=== PATIENT | male | born 1970 | race Caucasian/White ===

== ENCOUNTER 2022-08-04 19:11 | Emergency (ER) | payer SELFPAY ==
[2022-08-04] VITALS (9 sets, daily range): BP systolic 134–160; BP diastolic 58–98; PULSE 60–63; RESP 16–23; TEMP 36.8; O2SAT 93–100; BMI 46.2
--- NOTE | 2022-08-04 19:26 | XRR_ITS ---
PROCEDURE INFORMATION: Exam: XR Chest Exam date and time: 08/04/2022 7:29 PM Age: 51 years old Clinical indication: Chest wall pain; Additional info: Cp TECHNIQUE: Imaging protocol: Radiologic exam of the chest. Views: 1 view. COMPARISON: No relevant prior studies available. FINDINGS: Lungs: Unremarkable. No consolidation. Pleural spaces: Unremarkable. No pleural effusion. No pneumothorax. Heart/Mediastinum: Cardiomegaly. Bones/joints: Unremarkable. XR/XR chest 1V portable [id number] IMPRESSION: Cardiomegaly, negative for infiltrate
--- NOTE | 2022-08-04 19:27 | ECG_ITS ---
[facility] Test Date: 2022-08-04 Pat Name: Lorne Doty Department: Room: Gender: Male Director Of Strategic Initiatives: : 1970 Requested By: Abdiel Johnson Order Number: [id number] Bright MD: Ann-Marie Arroyo M.D. Measurements Intervals [place] Rate: 59 P: 48 MA: 163 QRS: -8 QRSD: 100 T: 70 QT: 452 QTc: 448 Interpretive Statements SINUS BRADYCARDIA POSSIBLE RIGHT VENTRICULAR CONDUCTION DELAY [RSR (QR) IN V1/V2] No previous ECG available for comparison Electronically Signed On 08-05-2022 11:07:10 CDT by Ann-Marie Arroyo M.D. [email or web address] regional medical centerMippineast ohio regional [email or web address]/store/OM/[id number]
--- NOTE | 2022-08-04 19:36 | ED_ITS ---
HPI - Chest Pain General: Chief Complaint: Chest Pain Stated Complaint: Chest pain post surgery Time Seen by Provider: 08/04/22 19:25 Source: patient Mode of arrival: ambulatory Limitations: no limitations History of Present Illness: 51-year-old male who states that he had a cardiac ablation in [place] 2 days ago he states that since then he has been having this sharp pain in his left chest. He rode a bus down here to see his family states pain has been constant denies any shortness of breath denies any fever he denies any worsening improving factors. He is a smoker. Associated symptoms: Deny abdominal pain, dyspnea, fever(s), nausea or vomiting Review of Systems Const: Denies: fever(s), chills, body aches or change in appetite Eyes: Denies: blurry vision or eye discomfort ENMT: Denies: throat pain or dental pain Card: Reports: chest pain Resp: Denies: dyspnea GI: Denies: abdominal pain, nausea, vomiting or diarrhea : Denies: dysuria Musc: Denies: neck pain or back pain Skin/Breast: Denies: rash Neuro: Denies: headache(s) Psych: Denies: depression Damon/Lymph: Denies: easy bruising All/Imm: Denies: urticaria PFSH ED PFSH: Surgical History (Updated 08/04/22 @ 19:37 by Abdiel Johnson MD) H/O cardiac radiofrequency ablation Social History (Updated 08/04/22 @ 19:37 by Abdiel Johnson MD) Smoking and tobacco status: current every day smoker Physical Exam Const: COMMON NORMALS: no acute distress, patient oriented x3 and healthy sonali earing HENMT: COMMON NORMALS: normocephalic and atraumatic HEAD & SCALP: normocephalic and atraumatic Eye: COMMON NORMALS: Equal, round and reactive pupils present and EOMs intact bilaterally PUPIL: Yes Equal, round and reactive pupils present Neck/C-Spine: COMMON NORMALS: full ROM and supple Chest: COMMONS NORMALS: normal inspection of the chest and normal palpation of entire chest wall Resp: COMMON NORMALS: normal respiratory effort, No retractions, No use of accessory muscles and clear to auscultation bilaterally AUSCULTATION: clear to auscultation bilaterally Cardio: COMMON NORMALS: regular rate, regular rhythm and No murmurs present (Cardio) RATE: regular rate RHYTHM: regular rhythm GI: COMMON NORMALS: Normal to inspection, nondistended, normoactive bowel sounds present, Soft to palpation, non-tender and no masses PALPATION: Yes Soft to palpation Extremity: COMMON NORMALS: normal to inspection and full ROM Neuro: COMMON NORMALS: patient oriented x3, moves all extremities and no focal motor deficits Psych: COMMON NORMALS: mental status grossly normal, Normal thought process present and cooperative THOUGHT PROCESS: Normal thought process present Skin: COMMON NORMALS: no rashes or lesions noted and no wounds GENERAL SKIN EXAM: no rashes or lesions noted Course Vital Signs: Vital signs: Vital Signs Temperature 98.2 F 08/04/22 19:15 Pulse Rate 60 08/04/22 23:50 Respiratory Rate 17 08/04/22 23:50 Blood Pressure 153/58 08/04/22 23:50 Pulse Oximetry 96 08/04/22 23:50 Oxygen Delivery Me thod 08/04/22 23:50 MDM - Chest Pain Medical Decision Making Patient presents here with chest pain atypical in nature his EKG troponins here are normal patient had left his meds in [place] we will refill his amiodarone Eliquis and Cardizem he is to follow-up and return if worsening he understands agrees plan. Lab Data : 08/04/22 20:09 08/04/22 20:09 Radiology Impressions Chest X-Ray 08/04/22 19:26 IMPRESSION: Cardiomegaly, negative for infiltrate Chest CTA 08/04/22 21:49 IMPRESSION: 1. Negative for pulmonary embolus or airspace infiltrate. 2. Cardiomegaly. Laboratory Results WBC 12.2 10^3/uL (4.0-10.0) H 08/04/22 20:09 RBC 3.76 10^6/uL (4.1-5.3) L 08/04/22 20:09 Hgb 12.3 g/dL (11.7-16.6) 08/04/22 20:09 Hct 38.6 % (42.0-52.0) L 08/04/22 20:09 MCV 102.7 fl (80-94) H 08/04/22 20:09 MCH 32.7 pg (28.0-34.0) 08/04/22 20:09 MCHC 31.9 g/dL (30.0-36.0) 08/04/22 20:09 RDW 13.2 % (12.1-15.1) 08/04/22 20:09 Plt Count 280 10^3/cmm (130-400) 08/04/22 20:09 MPV 8.5 fL (7.4-10.4) 08/04/22 20:09 Neut % (Auto) 68.6 % 08/04/22 20:09 Lymph % (Auto) 21.7 % 08/04/22 20:09 Carter % (Auto) 7.1 % 08/04/22 20:09 Eos % (Auto) 0.9 % 08/04/22 20:09 Baso % (Auto) 0.3 % 08/04/22 20:09 Neut # (Auto) 8.37 10^3/uL (1.8-7.7) H 08/04/22 20:09 Lymph # (Auto) 2.6 10^3/uL (0.8-4.8) 08/04/22 20:09 Carter # (Auto) 0.9 10^3/uL (0.2-0.9) 08/04/22 20:09 Eos # (Auto) 0.1 10^3/uL (0.0-0.8) 08/04/22 20:09 Baso # (Auto) 0.0 10^3/uL (0.0-0.1) 08/04/22 20:09 Nucleated RBC % (auto) 0 % 08/04/22 20:09 Nucleated RBCs # 0.0 /100WBC 08/04/22 20:09 PT 13.40 SECONDS (12.1-14.9) 08/04/22 20:09 INR 0.99 (0.8-1.2) 08/04/22 20:09 D-Dimer 1.06 ug/mIFEU (0-0.59) H 08/04/22 20:09 Sodium 137 mmol/L (136-145) 08/04/22 20:09 Potassium 3.8 mmol/L (3.5-5.1) 08/04/22 20:09 Chloride 102 mmol/L (98-107) 08/04/22 20:09 Carbon Dioxide 24 mmol/L (22-29) 08/04/22 20:09 Anion Gap 14.8 (5-19) 08/04/22 20:09 BUN 9 mg/dL (6-20) 08/04/22 20:09 Creatinine 0.9 mg/dL (0.7-1.2) 08/04/22 20:09 GFR Calculation 89.0 mL/min (90-130) L 08/04/22 20:09 Glucose 107 mg/dL (65-115) 08/04/22 20:09 Calculated Osmolality 283 mOsm/kg (285-295) L 08/04/22 20:09 Calcium 8.6 mg/dL (8.5-10.5) 08/04/22 20:09 Total Bilirubin 0.2 mg/dL (0.15-1.2) 08/04/22 20:09 AST 16 U/L (0-40) 08/04/22 20:09 ALT 22 U/L (0-41) 08/04/22 20:09 Alkaline Phosphatase 87 U/L (40-130) 08/04/22 20:09 Troponin T Baseline 37 ng/L (0-15) H 08/04/22 20:09 Troponin T 120 Minute 36.43 ng/L (0-15) H 08/04/22 22:40 Delta Troponin T -0.57 ABS# (0-10) L 08/04/22 22:40 Total Protein 6.9 g/dL (6.6-8.7) 08/04/22 20:09 Albumin 3.5 g/dL (3.5-5.2) 08/04/22 20:09 Globulin 3.4 g/dL (1.3-4.6) 08/04/22 20:09 EKG Data EKG 1: I personally reviewed and interpreted this EKG as follows: EKG interpretation date: 08/04/22 EKG interpretation time: 19:27 Interpretation: sinus gavin hr [address] or t wave abnormalities qrs 100 [id number] EKG 2: I personally reviewed and interpreted this EKG as follows: EKG interpretation date: 08/04/22 EKG interpretation time: 21:26 Interpretation: sinus gavin hr [address] or t wave abnormalities qrs 95 qtc 434 Discharge Plan Discharge Patient Disposition: Home Clinical Impression: Chest pain Prescriptions: New amiodarone 200 mg tablet 200 mg PO BID Qty: 60 0RF Eliquis 5 mg tablet 5 mg PO BID Qty: 60 0RF Cardizem CD 120 mg capsule,extended release 24hr 120 mg PO DAILY Qty: 30 0RF Discharge Orders: Discharge ED (Routine); Ordered 08/04/22 Ordered By: Abdiel Johnson Discharge Diet: Advance as tolerated Discharge Activity: Resume usual activity Patient Instructions: Chest Pain (ED) Coding Level of Care Code ED Postage Machine Operator for Rigo Fwgabrielle Exam Comprehensive
[2022-08-04] MEDS: HYDROmorphone 1 mg/mL INJ 1 mL 0.5 MG IVP (19:59)
[2022-08-04] MEDS: ondansetron 2 mg/ML SDV 2 mL 4 MG IVP (19:59)
[2022-08-04 20:33] LABS: Basophils % 0.3 %; Eosinophils # 0.1 10^3/uL (0.0-0.8); Eosinophils % 0.9 %; Hematocrit 38.6 % (42.0-52.0); Hemoglobin 12.3 g/dL (11.7-16.6); Lymphocytes # 2.6 10^3/uL (0.8-4.8); Lymphocytes % 21.7 %; Mean Corpuscular HGB Conc 31.9 g/dL (30.0-36.0); Mean Corpuscular Hemoglobin 32.7 pg (28.0-34.0); Mean Corpuscular Volume 102.7 fl (80-94); Mean Platelet Volume 8.5 fL (7.4-10.4); Monocytes # 0.9 10^3/uL (0.2-0.9); Monocytes % 7.1 %; Neutrophils # 8.37 10^3/uL (1.8-7.7); Neutrophils % 68.6 %; Nucleated Red Blood Cells % 0 %; Platelet Count 280 10^3/cmm (130-400); Red Blood Count 3.76 10^6/uL (4.1-5.3); Red Cell Distribution Width 13.2 % (12.1-15.1); White Blood Count 12.2 10^3/uL (4.0-10.0)
[2022-08-04 20:54] LABS: Troponin(5th) Baseline 37 ng/L (0-15)
[2022-08-04 20:55] LABS: Alanine Aminotransferase 22 U/L (0-41); Albumin Level 3.5 g/dL (3.5-5.2); Alkaline Phosphatase 87 U/L (40-130); Anion Gap 14.8 (5-19); Aspartate Amino Transferase 16 U/L (0-40); Blood Urea Nitrogen 9 mg/dL (6-20); Calcium 8.6 mg/dL (8.5-10.5); Carbon Dioxide 24 mmol/L (22-29); Chloride 102 mmol/L (98-107); Globulin 3.4 g/dL (1.3-4.6); Glucose 107 mg/dL (65-115); Osmolality Calculated 283 mOsm/kg (285-295); Potassium 3.8 mmol/L (3.5-5.1); Sodium 137 mmol/L (136-145); Total Bilirubin 0.2 mg/dL (0.15-1.2); Total Protein 6.9 g/dL (6.6-8.7)
[2022-08-04 21:02] LABS: INR 0.99 (0.8-1.2)
[2022-08-04 21:04] LABS: D Dimer 1.06 ug/mIFEU (0-0.59)
--- NOTE | 2022-08-04 21:26 | ECG_ITS ---
[facility] Test Date: 2022-08-04 Pat Name: Lorne Doty Department: Room: Gender: Male Communications Analyst: : 1970 Requested By: Abdiel Johnson Order Number: [id number] Bright MD: Ann-Marie Arroyo M.D. Measurements Intervals [place] Rate: 59 P: 46 [place]: 174 QRS: 1 QRSD: 95 T: 70 QT: 435 QTc: 432 Interpretive Statements SINUS BRADYCARDIA WITH SINUS ARRHYTHMIA INCOMPLETE RIGHT BUNDLE BRANCH BLOCK [90+ ms QRS DURATION, TERMINAL R IN V1/V2, 40+ ms S IN I/aVL/V4/V5/V6] Compared to ECG 08/04/2022 19:27:10 Incomplete right bundle-branch block now present Electronically Signed On 08-05-2022 11:13:23 CDT by Ann-Marie Arroyo M.D. [id number]
[2022-08-04 21:47] LABS: Slide Review Slide Review Perform
--- NOTE | 2022-08-04 21:49 | CTR_ITS ---
PROCEDURE INFORMATION: Exam: CTA Chest With Contrast Exam date and time: 08/04/2022 10:18 PM Age: 51 years old Clinical indication: Pain and abnormal findings; Abnormal diagnostic tests; Elevated d-dimer; Shortness of breath; Chest pressure; Prior surgery; Surgery date: Post-operative (0-2 days); Surgery type: Cardiac radiofrequency ablation. Patient HX: Patient had cardiac ablation two days ago. C/O left chest discomfort with SOB and elevated d dimer. TECHNIQUE: Imaging protocol: Computed tomographic angiography of the chest with contrast. 3D rendering (Not supervised by radiologist): MIP and/or 3D reconstructed images were created by the technologist. Radiation optimization: All CT scans at this facility use at least one of these dose optimization techniques: automated exposure control; mA and/or kV adjustment per patient size (includes targeted exams where dose is matched to clinical indication); or iterative reconstruction. Contrast material: OMNI 350; Contrast volume: 90 ml; Contrast route: INTRAVENOUS (IV); COMPARISON: CR (CHEST, ) 08/04/2022 7:29 PM RADIATION DOSE METRICS: Total DLP (mGy-cm): 614.05 FINDINGS: Pulmonary arteries: Normal. No pulmonary emboli. Aorta: Unremarkable. No aortic aneurysm. No aortic dissection. Lungs: Unremarkable. No consolidation. No masses. Pleural spaces: Unremarkable. No pneumothorax. No pleural effusion. Heart: Cardiomegaly. Negative for coronary artery atherosclerotic calcifications. Lymph nodes: Unremarkable. No enlarged lymph nodes. Bones/joints: Unremarkable. No acute fracture. Soft tissues: Unremarkable. CT/CT angio chest PE protcl [id number] IMPRESSION: 1. Negative for pulmonary embolus or airspace infiltrate. 2. Cardiomegaly.
[2022-08-04] MEDS: HYDROmorphone 1 mg/mL INJ 1 mL IVP (22:39)
[2022-08-04] MEDS: iohexol 350 mg/mL 100 mL Btl IV (22:46)
[2022-08-04 23:07] LABS: Troponin 5 2HR 36.43 ng/L (0-15)
[2022-08-04 23:16] LABS: Troponin 5 2HR Delta -0.57 ABS# (0-10)
== END 2022-08-04 23:55 | disposition home or self-care (01) ==
PROVIDERS: Emergency Provider Emergency Medicine
DX: R07.9 Chest pain, unspecified (principal); Z79.01 Long term (current) use of anticoagulants; F17.210 Nicotine dependence, cigarettes, uncomplicated
CPT/HCPCS: 36415; 71045; 71275; 80053; 84484; 85025; 85378; 85610; 93005; 96374; 96375; 96376; 99285; J1170; J2405; Q9967

== ENCOUNTER 2022-08-05 12:53 | Emergency (ER) | payer MEDICARE, SELFPAY ==
[2022-08-05 12:56] VITALS: BP 155/90; PULSE 60; RESP 22; TEMP 36.9; O2SAT 97; BMI 53.1
--- NOTE | 2022-08-05 13:08 | ECG_ITS ---
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 Measurements Intervals [place] Rate: 57 P: 96 [place]: 159 QRS: -11 QRSD: 98 T: 78 QT: 435 QTc: 424 Interpretive Statements SINUS BRADYCARDIA WITH SINUS ARRHYTHMIA Compared to ECG 08/04/2022 21:26:11 Incomplete right bundle-branch block no longer present Electronically Signed On 08-05-2022 18:12:18 CDT by Shahbaz Mcfarland M.D. [id number]
--- NOTE | 2022-08-05 13:15 | ED_ITS ---
Documented by User: Luis E Gunn DO 08/05/22 18:04 HPI - Chest Pain General: Chief Complaint: Chest Pain Stated Complaint: Chess pains Time Seen by Provider: 08/05/22 13:01 Source: patient Mode of arrival: ambulatory History of Present Illness: 51-year-old male reregistered in the emergency room. He was here last night for serial enzymes which were negative. He reregistered to be seen stating a chest discomfort when talking to him he is confused about his medications he wants to be admitted to the hospital. He is took a bus [place] his brother supposed to come and get him but evidently does not want to there at odds with each other. He is complaining of the same chest discomfort he had last night he has not done anything exertional. No radiation to the neck arms or back. Patient is morbidly obese is not associating with any type of shortness of breath or diaphoresis. Patient previously had a radiofrequency ablation but no known coronary artery disease MD complaint: chest pain Onset (ago): hour(s) Prior episodes: Yes Onset: during rest Pain location: substernal Pain radiation: none Severity: moderate Quality: aching and heaviness Relieving factors: nothing Exacerbating factors: nothing Associated symptoms: Deny abdominal pain, diaphoresis, dyspnea, fever(s), leg edema, nausea, palpitations, sense of impending doom, syncope or vomiting Treatment prior to arrival: none Review of Systems Const: Denies: fever(s), chills, fatigue, malaise or diaphoresis ENMT: Denies: throat pain, ear or mastoid pain, nasal discharge or nasal congestion Card: Reports: chest pain; Denies: palpitations, irregular heart rhythm, edema or syncope Resp: Denies: dyspnea GI: Denies: abdominal pain, nausea or vomiting : Denies: flank pain, difficulty urinating, dysuria, urinary frequency or urinary urgency Skin/Breast: Denies: rash or pruritus PFSH ED PFSH: Medical History (Updated 08/05/22 @ 21:02 by Abdiel Johnson MD) Morbid obesity Surgical History H/O cardiac radiofrequency ablation Social History (Reviewed 08/05/22 @ 17:09 by KATELYN Liz Smoking and tobacco status: current every day smoker Physical Exam Const: COMMON NORMALS: no acute distress GENERAL APPEARANCE: cooperative and comfortable NUTRITIONAL APPEARANCE: obese morbidly obese ORIENTATION/CONSCIOUSNESS: Yes awake, Yes oriented to person, Yes oriented to place and Yes oriented to time HENMT: COMMON NORMALS: normocephalic and atraumatic HEAD & SCALP: normocephalic and atraumatic Resp: COMMON NORMALS: normal respiratory effort, No retractions, No use of accessory muscles and clear to auscultation bilaterally AUSCULTATION: clear to auscultation bilaterally Cardio: COMMON NORMALS: regular rate, regular rhythm and No murmurs present (Cardio) RATE: regular rate RHYTHM: regular rhythm GI: COMMON NORMALS: Soft to palpation and No hepatosplenomegaly present AUSCULTATION: Yes normoactive bowel sounds PALPATION: Yes Soft to palpation, No Tenderness to palpation present (GI), No Guarding due to palpation present (GI) and Yes No hepatosplenomegaly present Extremity: COMMON NORMALS: normal to inspection, capillary refill normal, no clubbing, cyanosis or edema, no calf tenderness and no pedal edema Neuro: SENSORIUM/ORIENTATION: Yes oriented to person, Yes oriented to place and Yes oriented to time Skin: COMMON NORMALS: no rashes or lesions noted GENERAL SKIN EXAM: no rashes or lesions noted Course Vital Signs: Vital signs: Vital Signs Temperature 98.1 F 08/05/22 22:51 Pulse Rate 61 08/05/22 22:51 Respiratory Rate 24 H 08/05/22 22:51 Blood Pressure 157/92 08/05/22 22:51 Pulse Oximetry 98 08/05/22 22:51 Oxygen Delivery Me thod 08/05/22 12:56 MDM - Chest Pain Medical Decision Making After initial troponin and EKG patient now is stating he is suicidal and conversation with him he admits he is does not want to have to deal with his medications and does not have anywhere to go. We have made arrangements for go to a homeless nursing home he does not want to go there and wants to be admitted to psychiatry for his suicidal ideation. Discussed with Dr. Bose he will see the patient in the department and evaluate. Awaiting Dr. Bose consult. Care signed out to Dr. Johnson at change of shift. See final notes for diagnosis and disposition. Medical Records I reviewed the patient's medical records. Lab Data I reviewed the patient's lab results. Laboratory Results Troponin T Gen 5 ng/L 45 ng/L (0-15) H 08/05/22 13:33 Troponin T 120 Minute 43.31 ng/L (0-15) H 08/05/22 15:37 Delta Troponin T -1.69 ABS# (0-10) L 08/05/22 15:37 Discharge Plan Discharge Patient Disposition: Home Clinical Impression: Chest pain Condition: Stable Prescriptions: No Action amiodarone 200 mg tablet 200 mg PO BID Qty: 60 0RF Eliquis 5 mg tablet 5 mg PO BID Qty: 60 0RF diltiazem HCl [Cardizem CD] 120 mg capsule,extended release 24hr 120 mg PO DAILY Qty: 30 0RF Lasix 40 mg Tablet 40 mg PO DAILY isosorbide mononitrate 30 mg Tablet Extended Release 24 Hr 30 mg PO DAILY tramadol 50 mg Tablet 50 mg PO Q8H PRN (Reason: Pain) venlafaxine 150 mg Tablet Extended Release 24 Hr 150 mg PO DAILY Discharge Orders: Discharge ED (Routine); Ordered 08/05/22 Ordered By: Abdiel Johnson Discharge Diet: Advance as tolerated Discharge Activity: Resume usual activity Patient Instructions: Chest Pain (ED) Coding Level of Care Code ED Window Unit Air Conditioning Mechanic for Chg Fwd Exam Detailed Documented by User: Abdiel Johnson MD 08/05/22 22:56 HPI - Chest Pain General: Chief Complaint: Chest Pain Stated Complaint: Chess pains Time Seen by Provider: 08/05/22 13:01 [facility] ED PFSH: Medical History (Updated 08/05/22 @ 21:02 by Abdiel Johnson MD) Morbid obesity Surgical History H/O cardiac radiofrequency ablation Social History Smoking and tobacco status: current every day smoker Course Vital Signs: Vital signs: Vital Signs Temperature 98.1 F 08/05/22 22:51 Pulse Rate 61 08/05/22 22:51 Respiratory Rate 24 H 08/05/22 22:51 Blood Pressure 157/92 08/05/22 22:51 Pulse Oximetry 98 08/05/22 22:51 Oxygen Delivery Me thod 08/05/22 12:56 MDM - Chest Pain Medical Decision Making After initial troponin and EKG patient now is stating he is suicidal and conversation with him he admits he is does not want to have to deal with his medications and does not have anywhere to go. We have made arrangements for go to a homeless nursing home he does not want to go there and wants to be admitted to psychiatry for his suicidal ideation. Discussed with Dr. Bose he will see the patient in the department and evaluate. Awaiting Dr. Bose consult. Care signed out to Dr. Johnson at change of shift. See final notes for diagnosis and disposition. Patient was seen here by Dr. Bose he is medically cleared does not require psych admission will discharge at this time. Lab Data Laboratory Results Troponin T Gen 5 ng/L 45 ng/L (0-15) H 08/05/22 13:33 Troponin T 120 Minute 43.31 ng/L (0-15) H 08/05/22 15:37 Delta Troponin T -1.69 ABS# (0-10) L 08/05/22 15:37 Discharge Plan Discharge Patient Disposition: Home Clinical Impression: Chest pain Condition: Stable Prescriptions: No Action amiodarone 200 mg tablet 200 mg PO BID Qty: 60 0RF Eliquis 5 mg tablet 5 mg PO BID Qty: 60 0RF diltiazem HCl [Cardizem CD] 120 mg capsule,extended release 24hr 120 mg PO DAILY Qty: 30 0RF Lasix 40 mg Tablet 40 mg PO DAILY isosorbide mononitrate 30 mg Tablet Extended Release 24 Hr 30 mg PO DAILY tramadol 50 mg Tablet 50 mg PO Q8H PRN (Reason: Pain) venlafaxine 150 mg Tablet Extended Release 24 Hr 150 mg PO DAILY Discharge Orders: Discharge ED (Routine); Ordered 08/05/22 Ordered By: Abdiel Johnson Discharge Diet: Advance as tolerated Discharge Activity: Resume usual activity Patient Instructions: Chest Pain (ED) Coding Level of Care Code ED Window Unit Air Conditioning Mechanic for Chg Fwd Exam Detailed
[2022-08-05 14:11] LABS: Troponin T (5th) Once 45 ng/L (0-15)
--- NOTE | 2022-08-05 14:53 | ECG_ITS ---
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 Measurements Intervals [place] Rate: 53 P: 41 [place]: 176 QRS: -1 QRSD: 99 T: 73 QT: 450 QTc: 425 Interpretive Statements SINUS BRADYCARDIA WITH SINUS ARRHYTHMIA Compared to ECG 08/05/2022 13:08:36 No significant changes Electronically Signed On 08-05-2022 18:18:08 CDT by Shahbaz Mcfarland M.D. [email or web address] hospital [email or web address] [email or web address]/[id number]
--- NOTE | 2022-08-05 15:42 | PC.NURSE ---
PT REPORTS THAT HE HAS HAD AND STILL HAS SI. INFORMED DR. DUKES HE VERBALIZED UNDERSTANDING. NOFURTHER ORDERS.
[2022-08-05 16:27] LABS: Troponin 5 2HR 43.31 ng/L (0-15)
[2022-08-05 16:34] LABS: Troponin 5 2HR Delta -1.69 ABS# (0-10)
--- NOTE | 2022-08-05 17:16 | PC.NURSE ---
pt asleep in bed, laying on right side. respirations appear even and unlabored.
--- NOTE | 2022-08-05 18:01 | PC.NURSE ---
pt sitting at end of bed watching TV. Pt requesting pudding, a coke, and a surgical mask. items provided for pt. pt currently calm and cooperative.
--- NOTE | 2022-08-05 18:59 | PC.NURSE ---
report given to MARITA Carmichael
[2022-08-05] MEDS: LORazepam 2 mg Tablet PO (22:41)
[2022-08-05 22:51] VITALS: BP 157/92; PULSE 61; RESP 24; TEMP 36.7; O2SAT 98
== END 2022-08-05 22:53 | disposition home or self-care (01) ==
PROVIDERS: Family Medicine; Emergency Provider Emergency Medicine
DX: R07.89 Other chest pain (principal); E66.01 Morbid (severe) obesity due to excess calories; Z68.43 Body mass index [BMI] 50.0-59.9, adult; F17.200 Nicotine dependence, unspecified, uncomplicated; Z59.00 Homelessness unspecified
CPT/HCPCS: 36415; 84484; 93005; 99285

== ENCOUNTER 2022-08-07 11:05 | Emergency (ER) | payer MEDICARE, SELFPAY ==
[2022-08-07 11:30] VITALS: BMI 51.7
[2022-08-07 11:32] VITALS: BP 178/98; PULSE 53; RESP 16; TEMP 36.6; O2SAT 97
--- NOTE | 2022-08-07 11:44 | W.ED.CHESTPA ---
HPI - Chest Pain General: Chief Complaint: Chest Pain Stated Complaint: Chest pain Time Seen by Provider: 08/07/22 11:21 Source: patient Mode of arrival: ambulatory History of Present Illness: 51-year-old male presents emergency room from the waiting room. He has been here for the last several days in the waiting room. He seen several times cardiac enzymes have been negative. Last time he was seen I had initiated his visit and then handed him off to Dr. Johnson at change of shift. Who expressed suicidal ideation the end of his visit psychiatry seen him and evaluated him and felt he was stable for discharge. The day that walked him over to get his medications refilled and he had a near syncopal episode. His main complaint now is pain. He says he has pain in his back and his chest. Short of breath with exertion. This is similar complaint to what he has presented with the last 2 times. Patient is super morbidly obese and complains of shortness of breath with any exertion. MD complaint: chest pain and chest heaviness Timing of current episode: episodic Prior episodes: Yes Onset: during rest and during exertion Pain location: left chest Pain radiation: back Severity: mild Quality: sharp Relieving factors: nothing Exacerbating factors: nothing Associated symptoms: Reports dyspnea; Deny abdominal pain, diaphoresis, fever(s), leg edema, nausea, palpitations, sense of impending doom, syncope or vomiting Treatment prior to arrival: none Review of Systems Const: Denies: fever(s), chills, fatigue, malaise or diaphoresis ENMT: Denies: throat pain, ear or mastoid pain, nasal discharge or nasal congestion Card: Reports: chest pain, edema and swelling of feet/ankles; Denies: palpitations, irregular heart rhythm or syncope Resp: Reports: dyspnea; Denies: productive cough or non-productive cough GI: Denies: abdominal pain, nausea or vomiting : Denies: flank pain, difficulty urinating, dysuria, urinary frequency or urinary urgency Musc: Reports: neck pain and back pain Skin/Breast: Denies: rash or pruritus PFSH ED PFSH: Medical History Morbid obesity Surgical History H/O cardiac radiofrequency ablation Social History Smoking and tobacco status: current every day smoker Physical Exam Const: GENERAL APPEARANCE: cooperative and comfortable ORIENTATION/CONSCIOUSNESS: Yes awake, Yes oriented to person, Yes oriented to place and Yes oriented to time HENMT: COMMON NORMALS: normocephalic, atraumatic and hearing grossly normal bilaterally HEAD & SCALP: normocephalic and atraumatic Resp: COMMON NORMALS: normal respiratory effort, No retractions, No use of accessory muscles and clear to auscultation bilaterally AUSCULTATION: clear to auscultation bilaterally Cardio: COMMON NORMALS: regular rate, regular rhythm and No murmurs present (Cardio) RATE: regular rate RHYTHM: regular rhythm GI: COMMON NORMALS: Soft to palpation and No hepatosplenomegaly present AUSCULTATION: Yes normoactive bowel sounds PALPATION: Yes Soft to palpation, No Tenderness to palpation present (GI), No Guarding due to palpation present (GI) and Yes No hepatosplenomegaly present Extremity: COMMON NORMALS: normal to inspection, capillary refill normal, no clubbing, cyanosis or edema, no calf tenderness and no pedal edema Neuro: SENSORIUM/ORIENTATION: Yes oriented to person, Yes oriented to place and Yes oriented to time Skin: COMMON NORMALS: no rashes or lesions noted GENERAL SKIN EXAM: no rashes or lesions noted Course Vital Signs: Vital signs: Vital Signs Temperature 97.8 F 08/07/22 11:32 Pulse Rate 53 L 08/07/22 11:32 Respiratory Rate 16 08/07/22 11:32 Blood Pressure 178/98 08/07/22 11:32 Pulse Oximetry 97 08/07/22 11:32 Oxygen Delivery Me thod 08/07/22 11:32 MDM - Chest Pain Medical Decision Making Labs continue to remain unremarkable. Reviewed findings with the patient. Went through all of his medications he including the ones he has with him and what he should be taking we did find several he will need prescriptions for. Social service made arrangements for him to go to homeless retirement. Encourage patient take medications as prescribed Medical Records I reviewed the patient's medical records. Lab Data I reviewed the patient's lab results. : 08/07/22 11:51 08/07/22 11:51 Laboratory Results WBC 9.8 10^3/uL (4.0-10.0) 08/07/22 11:51 RBC 3.77 10^6/uL (4.1-5.3) L 08/07/22 11:51 Hgb 12.6 g/dL (11.7-16.6) 08/07/22 11:51 Hct 38.5 % (42.0-52.0) L 08/07/22 11:51 MCV 102.1 fl (80-94) H 08/07/22 11:51 MCH 33.4 pg (28.0-34.0) 08/07/22 11:51 MCHC 32.7 g/dL (30.0-36.0) 08/07/22 11:51 RDW 13.4 % (12.1-15.1) 08/07/22 11:51 Plt Count 261 10^3/cmm (130-400) 08/07/22 11:51 MPV 8.4 fL (7.4-10.4) 08/07/22 11:51 Neut % (Auto) 73.0 % 08/07/22 11:51 Lymph % (Auto) 20.7 % 08/07/22 11:51 [place] % (Auto) 4.9 % 08/07/22 11:51 Eos % (Auto) 0.4 % 08/07/22 11:51 Baso % (Auto) 0.3 % 08/07/22 11:51 Neut # (Auto) 7.17 10^3/uL (1.8-7.7) 08/07/22 11:51 Lymph # (Auto) 2.0 10^3/uL (0.8-4.8) 08/07/22 11:51 [place] # (Auto) 0.5 10^3/uL (0.2-0.9) 08/07/22 11:51 Eos # (Auto) 0.0 10^3/uL (0.0-0.8) 08/07/22 11:51 Baso # (Auto) 0.0 10^3/uL (0.0-0.1) 08/07/22 11:51 Nucleated RBC % (auto) 0 % 08/07/22 11:51 Nucleated RBCs # 0.0 /100WBC 08/07/22 11:51 Sodium 137 mmol/L (136-145) 08/07/22 11:51 Potassium 4.3 mmol/L (3.5-5.1) 08/07/22 11:51 Chloride 103 mmol/L (98-107) 08/07/22 11:51 Carbon Dioxide 23 mmol/L (22-29) 08/07/22 11:51 Anion Gap 15.3 (5-19) 08/07/22 11:51 BUN 10 mg/dL (6-20) 08/07/22 11:51 Creatinine 0.8 mg/dL (0.7-1.2) 08/07/22 11:51 GFR Calculation 101.9 mL/min (90-130) 08/07/22 11:51 Glucose 104 mg/dL (65-115) 08/07/22 11:51 Calculated Osmolality 283 mOsm/kg (285-295) L 08/07/22 11:51 Calcium 8.8 mg/dL (8.5-10.5) 08/07/22 11:51 Troponin T Gen 5 ng/L 48 ng/L (0-15) H 08/07/22 11:51 Discharge Plan Discharge Patient Disposition: Home Clinical Impression: H/O cardiac radiofrequency ablation, Morbid obesity, Atypical chest pain Condition: Stable Prescriptions: New Synthroid 75 mcg tablet 75 mcg PO DAILY Qty: 30 0RF pantoprazole 40 mg tablet,delayed release (DR/EC) 40 mg PO DAILY Qty: 30 0RF clonidine HCl 0.2 mg tablet 0.2 mg PO TID PRN (Reason: hypertensive emergency) Qty: 90 0RF Lipitor 40 mg tablet 40 mg PO DAILY Qty: 30 0RF Effexor XR 150 mg capsule,extended release 24hr 150 mg PO DAILY Qty: 30 0RF isosorbide mononitrate 30 mg tablet extended release 24 hr 30 mg PO DAILY Qty: 30 0RF Discontinued isosorbide mononitrate 30 mg Tablet Extended Release 24 Hr 30 mg PO DAILY venlafaxine 150 mg Tablet Extended Release 24 Hr 150 mg PO DAILY atorvastatin [Lipitor] 40 mg Tablet 40 mg PO DAILY pantoprazole [Protonix] 20 mg Tablet,Delayed Release (Dr/Ec) 20 mg PO DAILY clonidine HCl 0.2 mg Tablet 0.2 mg PO Q8H PRN (Reason: unknown) No Action amiodarone 200 mg tablet 200 mg PO BID Qty: 60 0RF Eliquis 5 mg tablet 5 mg PO BID Qty: 60 0RF diltiazem HCl [Cardizem CD] 120 mg capsule,extended release 24hr 120 mg PO DAILY Qty: 30 0RF furosemide [Lasix] 40 mg Tablet 40 mg PO BID Tylenol 325 mg Tablet 650 mg PO Q4H PRN (Reason: Pain) levothyroxine 75 mcg Tablet 75 mcg PO DAILY ibuprofen 200 mg Tablet 800 mg PO Q6H PRN (Reason: Pain) fluticasone propion-salmeterol 100-50 mcg/dose Blister With Device 1 inh INHALATION BID Ventolin HFA 90 mcg/actuation Hfa Aerosol Inhaler 2 puff INHALATION QID PRN (Reason: Shortness Of Breath) melatonin 3 mg Capsule 6 mg PO BEDTIME PRN (Reason: Sleep) Discharge Orders: Discharge ED (Routine); Ordered 08/07/22 Ordered By: Luis E Gunn Discharge Diet: Usual diet Discharge Activity: Limit activity as instructed Patient Instructions: Opioid Safety, Pain Management Activity Restrictions/Additional Instructions: Avoid exertional activity. Medication list as in the discharge summary here today. You will need to get refills of several of the medication scripts were given for 30 days. Follow-up with your primary care doctor to refill more of your medications for longer term. 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
[2022-08-07 12:06] LABS: Basophils % 0.3 %; Eosinophils % 0.4 %; Hematocrit 38.5 % (42.0-52.0); Hemoglobin 12.6 g/dL (11.7-16.6); Lymphocytes % 20.7 %; Mean Corpuscular HGB Conc 32.7 g/dL (30.0-36.0); Mean Corpuscular Hemoglobin 33.4 pg (28.0-34.0); Mean Corpuscular Volume 102.1 fl (80-94); Mean Platelet Volume 8.4 fL (7.4-10.4); Monocytes # 0.5 10^3/uL (0.2-0.9); Monocytes % 4.9 %; Neutrophils # 7.17 10^3/uL (1.8-7.7); Nucleated Red Blood Cells % 0 %; Platelet Count 261 10^3/cmm (130-400); Red Blood Count 3.77 10^6/uL (4.1-5.3); Red Cell Distribution Width 13.4 % (12.1-15.1); White Blood Count 9.8 10^3/uL (4.0-10.0)
--- NOTE | 2022-08-07 12:16 | PC.PHAR ---
pt brought in his medications in blister packs from the [facility]-notes are made in the pharmacy comments with how many days or tabs the pt had left-pt states he took xanax 1mg tid but there was no med pack with that medication -pt also had a empty pack that had depakote dr 250mg bid said not to put in that medication because he wasnt refilling it-notes are made in the pharmacy comments
[2022-08-07 12:25] LABS: Troponin T (5th) Once 48 ng/L (0-15)
[2022-08-07 12:26] LABS: Anion Gap 15.3 (5-19); Blood Urea Nitrogen 10 mg/dL (6-20); Calcium 8.8 mg/dL (8.5-10.5); Carbon Dioxide 23 mmol/L (22-29); Chloride 103 mmol/L (98-107); Glomerular Filtration Rate 101.9 mL/min (90-130); Glucose 104 mg/dL (65-115); Osmolality Calculated 283 mOsm/kg (285-295); Potassium 4.3 mmol/L (3.5-5.1); Sodium 137 mmol/L (136-145)
--- NOTE | 2022-08-07 12:47 | DCPLANNER ---
display department manager was asked to arrange transportation for patient. display department manager spoke with patient, he stated that he has a bed at [facility], lining caser called and confirmed that patient does have a bed at the senior care. display department manager was told that patient would need to go to the [employer] [facility] station and get a wants and warrants check. display department manager spoke with E[employer] and was approved to arrange transportation for patient. Patient will need to go to the [employer] station for the wants and warrants check, then transported [place] [facility] [place] [facility]. display department manager called [employer], was quoted 11.00 for patients transportation with both stops. display department manager emailed patients information to [place] with transportation information.
--- NOTE | 2022-08-07 14:14 | ECG_ITS ---
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 Measurements Intervals [place] Rate: 55 P: 25 CT: 171 QRS: -2 QRSD: 105 T: 73 QT: 463 QTc: 444 Interpretive Statements SINUS BRADYCARDIA INTERPRETATION BASED ON A DEFAULT AGE OF 40 YEARS Compared to ECG 08/05/2022 14:53:45 Sinus arrhythmia no longer present Electronically Signed On 08-08-2022 0:08:39 CDT by Shahbaz Mcfarland M.D. [email or web address]/store/[id number] f
== END 2022-08-07 12:56 | disposition home or self-care (01) ==
PROVIDERS: Emergency Provider Family Medicine
DX: R07.89 Other chest pain (principal); E66.01 Morbid (severe) obesity due to excess calories; Z68.43 Body mass index [BMI] 50.0-59.9, adult; Z98.890 Other specified postprocedural states; Z79.01 Long term (current) use of anticoagulants; F17.210 Nicotine dependence, cigarettes, uncomplicated
CPT/HCPCS: 36415; 80048; 84484; 85025; 93005; 99284

== ENCOUNTER 2022-08-17 12:57 | Emergency (ER) | payer MEDICARE, SELFPAY ==
[2022-08-17] VITALS (21 sets, daily range): BP systolic 101–164; BP diastolic 42–89; PULSE 51–67; RESP 14–27; TEMP 36.7; O2SAT 91–96; BMI 51.7
--- NOTE | 2022-08-17 13:07 | ECG_ITS ---
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 Measurements Intervals [place] Rate: 65 P: 32 TN: 164 QRS: -27 QRSD: 102 T: 72 QT: 448 QTc: 469 Interpretive Statements SINUS RHYTHM BORDERLINE LEFT AXIS DEVIATION [QRS AXIS < -20] NONSPECIFIC T-WAVE ABNORMALITY Compared to ECG 08/07/2022 11:17:52 T-wave abnormality now present Sinus bradycardia no longer present Electronically Signed On 08-17-2022 17:08:17 CDT by Ann-Marie Arroyo M.D. [email or web address]/[id number] f
--- NOTE | 2022-08-17 13:09 | XRR_ITS ---
PROCEDURE INFORMATION: Exam: XR Chest Exam date and time: 08/17/2022 1:13 PM Age: 51 years old Clinical indication: Pain; Angina pectoris; Additional info: Chest pain TECHNIQUE: Imaging protocol: Radiologic exam of the chest. Views: 1 view. COMPARISON: CR (CHEST, ) 08/04/2022 7:29 PM FINDINGS: Lungs: Unremarkable. No consolidation. Pleural spaces: Unremarkable. No pleural effusion. No pneumothorax. Heart/Mediastinum: Unremarkable. No cardiomegaly. Bones/joints: Unremarkable. XR/XR chest 1V portable 19140 IMPRESSION: No acute findings.
--- NOTE | 2022-08-17 13:18 | PC.NURSE ---
Addendum entered by Lauren Cisneros RN 08/17/22 13:23: pt also reports visual and auditory hallucinations of hearing voices and seeing people. pt unable to go into further detail regarding hallucinations. states other people do not hear/see them but states they are real to him. denies HI, stated again he has thoughts of wanting to hurt himself. Original Note: pt came in by EMS for chest pain that was present when he woke up this morning around 0700, accompanied with increased shortness of breath and some vomiting this morning. Pt denies dizziness or lightheadedness. pt respirations even and unlabored. lung sounds clear bilat. bowel sounds present x4. pt speech clear, speaking in complete sentences without difficulty. skin pink/warm/dry. pt also admits to suicidal ideation with a plan to cut his wrists. reports hx of suicidal ideation.
--- NOTE | 2022-08-17 13:24 | ECG_ITS ---
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 Measurements Intervals [place] Rate: 58 P: 28 [place]: 162 QRS: -19 QRSD: 100 T: 75 QT: 441 QTc: 436 Interpretive Statements SINUS BRADYCARDIA WITH OCCASIONAL SUPRAVENTRICULAR PREMATURE COMPLEXES NONSPECIFIC T-WAVE ABNORMALITY Compared to ECG 08/07/2022 11:17:52 T-wave abnormality now present Electronically Signed On 08-17-2022 17:12:05 CDT by Ann-Marie Arroyo M.D. [email or web address]/store/[id number] f
--- NOTE | 2022-08-17 13:28 | PC.NURSE ---
nurse remaining in room with pt until other sitter present. pt changed into gown and belongings removed from room.
--- NOTE | 2022-08-17 13:31 | ED_ITS ---
HPI - Chest Pain General: Chief Complaint: Chest Pain Stated Complaint: cp Time Seen by Provider: 08/17/22 13:05 Source: patient Mode of arrival: ambulatory Limitations: no limitations History of Present Illness: 51-year-old male presents to the emergency room with complaints of chest pain. Patient been seen here last month had similar pains. Cardiac work-up was negative. He returned a couple times to the emergency room ultimately was discharged home and we taking care to make sure he had all his medications. He states he is still very anxious because we had not given him his alprazolam. He was discharged to the [facility] in [place]. Staff reported that he had been dismissed from the prison due to some issues he is saying he left the prison voluntarily to get an apartment but the apartment fell through and he cannot go back until its been a year since that the last time he was there.. He is not currently having significant chest discomfort relates vague ache no radiation. He has not had any diaphoresis orDyspnea at this time he told ambulance crew that he was short of breath but is not having any difficulty now. He is awake alert and oriented with no focal neurologic def icits noted. O2 sat 96 to 95% on room air. MD complaint: chest pain Onset (ago): week(s) Timing of current episode: episodic Prior episodes: Yes Onset: during rest and during exertion Pain location: substernal Pain radiation: none Severity: moderate Quality: aching and heaviness Relieving factors: nothing Exacerbating factors: nothing Associated symptoms: Reports palpitations; Deny abdominal pain, diaphoresis, dyspnea, fever(s), leg edema, nausea, sense of impending doom, syncope or vomiting Review of Systems Const: Denies: fever(s), chills, fatigue, malaise or diaphoresis ENMT: Denies: throat pain, ear or mastoid pain, nasal discharge or nasal congestion Card: Reports: chest pain and palpitations; Denies: syncope Resp: Denies: dyspnea GI: Denies: abdominal pain, nausea or vomiting : Denies: flank pain, difficulty urinating, dysuria, urinary frequency or urinary urgency Skin/Breast: Denies: rash or pruritus Psych: Reports: anxiety and depression [facility] ED PFSH: Medical History Morbid obesity Surgical History H/O cardiac radiofrequency ablation Social History Smoking and tobacco status: current every day smoker Physical Exam Const: GENERAL APPEARANCE: cooperative and comfortable ORIENTATION/CONSCIOUSNESS: Yes awake, Yes oriented to person, Yes oriented to place and Yes oriented to time HENMT: COMMON NORMALS: normocephalic, atraumatic and hearing grossly normal bilaterally HEAD & SCALP: normocephalic and atraumatic Lymph: LYMPHATIC: no lymphadenopathy noted and no lymphedema noted Resp: COMMON NORMALS: normal respiratory effort, No retractions, No use of accessory muscles and clear to auscultation bilaterally AUSCULTATION: clear to auscultation bilaterally Cardio: COMMON NORMALS: regular rate, regular rhythm and No murmurs present (Cardio) RATE: regular rate RHYTHM: regular rhythm GI: COMMON NORMALS: Soft to palpation and No hepatosplenomegaly present AUSCULTATION: Yes normoactive bowel sounds PALPATION: Yes Soft to palpation, No Tenderness to palpation present (GI), No Guarding due to palpation present (GI) and Yes No hepatosplenomegaly present Extremity: COMMON NORMALS: normal to inspection, capillary refill normal, no clubbing, cyanosis or edema, no calf tenderness and no pedal edema Neuro: SENSORIUM/ORIENTATION: Yes oriented to person, Yes oriented to place and Yes oriented to time Skin: COMMON NORMALS: no rashes or lesions noted GENERAL SKIN EXAM: no rashes or lesions noted Course Vital Signs: Vital signs: Vital Signs Temperature 98.0 F 08/17/22 13:08 Pulse Rate 63 08/17/22 18:38 Respiratory Rate 19 H 08/17/22 18:00 Blood Pressure 144/80 08/17/22 18:38 Pulse Oximetry 95 08/17/22 18:38 Oxygen Delivery Me thod 08/17/22 13:08 MDM - Chest Pain Medical Decision Making Labs and imaging reviewed. Troponins are negative EKG does not show any acute changes. Have discussed with psychiatry. Dr. Bose will come and consult on the patient in the department. I think at this point is suicidality complaint is driven more by his desire to have a place to stay. This has been an issue with him previously as well. I think we can address his needs with some medication adjustments. Medical Records I reviewed the patient's medical records. Lab Data I reviewed the patient's lab results. : 08/17/22 13:15 08/17/22 13:15 Radiology Impressions Chest X-Ray 08/17/22 13:09 IMPRESSION: No acute findings. Laboratory Results WBC 9.0 10^3/uL (4.0-10.0) 08/17/22 13:15 RBC 4.46 10^6/uL (4.1-5.3) 08/17/22 13:15 Hgb 14.6 g/dL (11.7-16.6) 08/17/22 13:15 Hct 44.8 % (42.0-52.0) 08/17/22 13:15 MCV 100.4 fl (80-94) H 08/17/22 13:15 MCH 32.7 pg (28.0-34.0) 08/17/22 13:15 MCHC 32.6 g/dL (30.0-36.0) 08/17/22 13:15 RDW 14.0 % (12.1-15.1) 08/17/22 13:15 Plt Count 259 10^3/cmm (130-400) 08/17/22 13:15 MPV 8.8 fL (7.4-10.4) 08/17/22 13:15 Neut % (Auto) 76.8 % 08/17/22 13:15 Lymph % (Auto) 17.2 % 08/17/22 13:15 [place] % (Auto) 4.9 % 08/17/22 13:15 Eos % (Auto) 0.6 % 08/17/22 13:15 Baso % (Auto) 0.4 % 08/17/22 13:15 Neut # (Auto) 6.93 10^3/uL (1.8-7.7) 08/17/22 13:15 Lymph # (Auto) 1.6 10^3/uL (0.8-4.8) 08/17/22 13:15 [place] # (Auto) 0.4 10^3/uL (0.2-0.9) 08/17/22 13:15 Eos # (Auto) 0.1 10^3/uL (0.0-0.8) 08/17/22 13:15 Baso # (Auto) 0.0 10^3/uL (0.0-0.1) 08/17/22 13:15 Nucleated RBC % (auto) 0 % 08/17/22 13:15 Nucleated RBCs # 0.0 /100WBC 08/17/22 13:15 Sodium 134 mmol/L (136-145) L 08/17/22 13:15 Potassium 3.7 mmol/L (3.5-5.1) 08/17/22 13:15 Chloride 98 mmol/L (98-107) 08/17/22 13:15 Carbon Dioxide 22 mmol/L (22-29) 08/17/22 13:15 Anion Gap 17.7 (5-19) 08/17/22 13:15 BUN 10 mg/dL (6-20) 08/17/22 13:15 Creatinine 0.8 mg/dL (0.7-1.2) 08/17/22 13:15 GFR Calculation 101.9 mL/min (90-130) 08/17/22 13:15 Glucose 131 mg/dL (65-115) H 08/17/22 13:15 Calculated Osmolality 279 mOsm/kg (285-295) L 08/17/22 13:15 Calcium 9.1 mg/dL (8.5-10.5) 08/17/22 13:15 Total Bilirubin 0.8 mg/dL (0.15-1.2) 08/17/22 13:15 AST 16 U/L (0-40) 08/17/22 13:15 ALT 15 U/L (0-41) 08/17/22 13:15 Alkaline Phosphatase 105 U/L (40-130) 08/17/22 13:15 Troponin T Baseline 31 ng/L (0-15) H 08/17/22 13:15 Troponin T 120 Minute 27.08 ng/L (0-15) H 08/17/22 14:52 Delta Troponin T -3.92 ABS# (0-10) L 08/17/22 14:52 Total Protein 7.5 g/dL (6.6-8.7) 08/17/22 13:15 Albumin 4.1 g/dL (3.5-5.2) 08/17/22 13:15 Globulin 3.4 g/dL (1.3-4.6) 08/17/22 13:15 Discharge Plan Discharge Patient Disposition: Home Clinical Impression: H/O cardiac radiofrequency ablation, Morbid obesity Condition: Stable Prescriptions: No Action ondansetron 4 mg tablet,disintegrating 4 mg PO Q8H PRN (Reason: nausea and vomiting) Qty: 15 0RF oxycodone 5 mg tablet 5 mg PO Q4H PRN (Reason: pain) Qty: 10 0RF Protonix 40 mg tablet,delayed release (DR/EC) 40 mg PO BID 14 Days Qty: 28 0RF amoxicillin-pot clavulanate 875-125 mg tablet 1 tab PO BID Qty: 20 0RF prednisone 50 mg tablet 50 mg PO DAILY Qty: 5 0RF albuterol sulfate 90 mcg/actuation HFA aerosol inhaler 2 inh INHALATION Q6H PRN (Reason: shortness of breath or wheezing) Qty: 8 0RF amiodarone 200 mg tablet 200 mg PO BID Qty: 60 0RF Eliquis 5 mg tablet 5 mg PO BID Qty: 60 0RF diltiazem HCl [Cardizem CD] 120 mg capsule,extended release 24hr 120 mg PO DAILY Qty: 30 0RF furosemide [Lasix] 40 mg Tablet 40 mg PO BID Tylenol 325 mg Tablet 650 mg PO Q4H PRN (Reason: Pain) levothyroxine 75 mcg Tablet 75 mcg PO DAILY ibuprofen 200 mg Tablet 800 mg PO Q6H PRN (Reason: Pain) fluticasone propion-salmeterol 100-50 mcg/dose Blister With Device 1 inh INHALATION BID Ventolin HFA 90 mcg/actuation Hfa Aerosol Inhaler 2 puff INHALATION QID PRN (Reason: Shortness Of Breath) melatonin 3 mg Capsule 6 mg PO BEDTIME PRN (Reason: Sleep) Synthroid 75 mcg tablet 75 mcg PO DAILY Qty: 30 0RF pantoprazole 40 mg tablet,delayed release (DR/EC) 40 mg PO DAILY Qty: 30 0RF clonidine HCl 0.2 mg tablet 0.2 mg PO TID PRN (Reason: hypertensive emergency) Qty: 90 0RF Lipitor 40 mg tablet 40 mg PO DAILY Qty: 30 0RF Effexor XR 150 mg capsule,extended release 24hr 150 mg PO DAILY Qty: 30 0RF isosorbide mononitrate 30 mg tablet extended release 24 hr 30 mg PO DAILY Qty: 30 0RF Discharge Orders: Discharge ED (Routine); Ordered 08/17/22 Ordered By: Luis E Gunn Discharge Diet: Usual diet Discharge Activity: Increase activity as tolerated Patient Instructions: Opioid Safety, Pain Management Activity Restrictions/Additional Instructions: Recommend estabishing with primary care physician and at [facility]. 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
[2022-08-17 13:33] LABS: Basophils % 0.4 %; Eosinophils # 0.1 10^3/uL (0.0-0.8); Eosinophils % 0.6 %; Hematocrit 44.8 % (42.0-52.0); Hemoglobin 14.6 g/dL (11.7-16.6); Lymphocytes # 1.6 10^3/uL (0.8-4.8); Lymphocytes % 17.2 %; Mean Corpuscular HGB Conc 32.6 g/dL (30.0-36.0); Mean Corpuscular Hemoglobin 32.7 pg (28.0-34.0); Mean Corpuscular Volume 100.4 fl (80-94); Mean Platelet Volume 8.8 fL (7.4-10.4); Monocytes # 0.4 10^3/uL (0.2-0.9); Monocytes % 4.9 %; Neutrophils # 6.93 10^3/uL (1.8-7.7); Neutrophils % 76.8 %; Nucleated Red Blood Cells % 0 %; Platelet Count 259 10^3/cmm (130-400); Red Blood Count 4.46 10^6/uL (4.1-5.3)
[2022-08-17 13:53] LABS: Alanine Aminotransferase 15 U/L (0-41); Albumin Level 4.1 g/dL (3.5-5.2); Alkaline Phosphatase 105 U/L (40-130); Aspartate Amino Transferase 16 U/L (0-40); Blood Urea Nitrogen 10 mg/dL (6-20); Calcium 9.1 mg/dL (8.5-10.5); Carbon Dioxide 22 mmol/L (22-29); Chloride 98 mmol/L (98-107); Globulin 3.4 g/dL (1.3-4.6); Glomerular Filtration Rate 101.9 mL/min (90-130); Glucose 131 mg/dL (65-115); Osmolality Calculated 279 mOsm/kg (285-295); Sodium 134 mmol/L (136-145); Total Bilirubin 0.8 mg/dL (0.15-1.2); Total Protein 7.5 g/dL (6.6-8.7)
[2022-08-17 13:54] LABS: Anion Gap 17.7 (5-19); Potassium 3.7 mmol/L (3.5-5.1); Troponin(5th) Baseline 31 ng/L (0-15)
[2022-08-17 15:18] LABS: Troponin 5 2HR 27.08 ng/L (0-15)
[2022-08-17 15:19] LABS: Troponin 5 2HR Delta -3.92 ABS# (0-10)
--- NOTE | 2022-08-17 15:39 | PC.SOCIAL ---
CM went to visit with patient, and when entering patient starts talking about his chest pain, being depressed and suicidal, and stated he wanted to slit his wrists. i explained to him that i was there to discuss housing options, I offered to get him set up at a homeless [facility] however I knew [facility] wouldnt except him, he had already burnt his bridge with them. pt started expressing that he wished he was . Informed him that i would see what i could do. When i left the room i went to speak to his nurse, but she was in with a patient. The office coordinator receptionist stated she had called cause Nelly was at meetings i told her about what was said by patient and how there was no way i could get him into independant living over one night. she stated that she would just wait and talk to Nelly when she got back.
--- NOTE | 2022-08-18 09:49 | DCPLANNER ---
quality system manager was asked to work with patient to find a place for him to live after [place] [facility] [place] quality system manager spoke with patients brother, who stated that patient is can not live with him. quality system manager called [facility] and spoke with Britton, was told that [facility] did have a bed that patient could have. Patient would need to go to the [employer] station and get a wants and warrants check, then go to the intermediate. quality system manager informed patient that he had a bed at [facility], and that transportation would pick patient up and take him the [employer] station, and then to the intermediate. quality system manager spoke with medical case worker, Katy and received permission to pay for transportation. quality system manager called [facility], quoted a [facility] of $11.00 to take patient to the intermediate and the stop for the warrants check.
== END 2022-08-17 18:49 | disposition home or self-care (01) ==
PROVIDERS: Emergency Provider Family Medicine
DX: R07.9 Chest pain, unspecified (principal); F32.A Depression, unspecified; R45.851 Suicidal ideations; Z59.02 Unsheltered homelessness; E66.01 Morbid (severe) obesity due to excess calories; Z68.43 Body mass index [BMI] 50.0-59.9, adult
CPT/HCPCS: 71045; 80053; 84484; 85025; 93005; 99285

== ENCOUNTER 2022-08-23 01:40 | Emergency (ER) | payer MEDICARE, SELFPAY ==
[2022-08-23 01:42] VITALS: BMI 49.3
[2022-08-23 01:45] VITALS: BP 155/79; PULSE 58; RESP 16; TEMP 37.2; O2SAT 96
--- NOTE | 2022-08-23 01:49 | W.ED.NAVMDI ---
HPI - Nausea/Vomiting/Diarrhea General: Chief complaint: Nausea/Vomiting/Diarrhea Stated complaint: N/V/D Time Seen by Provider: 08/23/22 01:49 History of Present Illness: Mr. Doty is a 51-year-old gentleman with complicated past medical and psychosocial history presenting with abdominal complaints. Onset of symptoms approximately 1 day ago and subacute with multiple episodes of watery diarrhea and watery BMs electrolyte any oral intake. Does have associated suprapubic abdominal pain without urinary symptoms. No blood in stool however with forceful vomiting does occasionally have brown or mildly red emesis. Intensity symptoms is moderate. Course has worsened. No other specific changes in health, exacerbating, or alleviating factors identified. Onset (ago): hour(s) Description of vomiting: watery Description of diarrhea: watery Associated nausea: Yes Associated abdominal pain: Yes Location of pain: Epigastric and Suprapubic Exacerbating factors: eating Relieving factors: none Associated symtoms: Reports nausea Review of Systems General: Reports: 10 or more systems reviewed and unremarkable except in HPI and below GI: Reports: nausea PFSH ED PFSH: Medical History Morbid obesity Surgical History H/O cardiac radiofrequency ablation Social History Smoking and tobacco status: current every day smoker Physical Exam Const: COMMON NORMALS: alert GENERAL APPEARANCE: cooperative and well developed HENMT: COMMON NORMALS: normocephalic and atraumatic HEAD & SCALP: normocephalic and atraumatic THROAT: posterior oropharynx normal Eye: COMMON NORMALS: conjunctivae normal CONJUNCTIVA: Yes conjunctivae normal SCLERA: sclerae normal Neck/C-Spine: COMMON NORMALS: supple GENERAL: Yes trachea midline Resp: EFFORT & INSPECTION: Yes able to speak in complete sentences AUSCULTATION: wheezes and diminished lung sounds Cardio: COMMON NORMALS: regular rate and regular rhythm RATE: regular rate RHYTHM: regular rhythm GI: COMMON NORMALS: Soft to palpation PALPATION: Yes Soft to palpation, Yes Tenderness to palpation present (GI), No Guarding due to palpation present (GI) and No Rigid due to palpation PERCUSSION: normal to percussion Extremity: GENERAL: Yes normal exam except as noted and No edema Neuro: COMMON NORMALS: moves all extremities SENSORIUM/ORIENTATION: Yes alert and No Orientation impaired Psych: COMMON NORMALS: mental status grossly normal and Normal thought process present THOUGHT PROCESS: Normal thought process present Course ED course: - Patient was seen and evaluated by me at bedside - Patient placed on cardiac monitors, IV access obtained - Initial evaluation notable for exam as above. EKG notable for sinus bradycardia, no STEMI - Labs and xrays personally interpreted by me -Antiemetic, RT treatment, steroids for breathing given - Labs notable for no leukocytosis, normal hemoglobin. Metabolic panel without acute derangement. Delta troponin is negative. No COVID or UTI. - Imaging notable for no lobar consolidation or pneumothorax. Based on physical exam and patient description of symptoms as well as comorbidities imaging of the abdomen is required. No acute finding identified on CT abdomen and pelvis. - Upon serial reexamination after treatment the patient was improved. Patient able to tolerate p.o. intake. - Based on patient history, evaluation, and testing as interpreted the most likely cause of the patient's condition is abdominal pain and acute exacerbation of COPD. - The results of ED evaluation were discussed with the patient including prescriptions and/or symptomatic cares (if applicable) including appropriate and responsible use, followup plan, and return precautions. The patient verbalized understanding and felt safe for discharge. - Patient discharged in satisfactory condition. Note: Click bubbles or prepopulated hawkins in note writing are used for assistance with data collection and billing and are inherently more limited than narrative and other text portions of this note. Please use narrative for additional clinical history and defer to narrative/free test for any case of contradictory information. If information appears in only free text or click bubble it should be considered present or absent as reported. Please contact note writer producer for clarifications of clinical information or contradictory information. MDM is a brief summary, contradictory or erroneous seeming information should be clarified and full note should be reviewed. Vital Signs: Vital signs: Vital Signs Temperature 98.9 F 08/23/22 01:45 Pulse Rate 52 L 08/23/22 04:38 Respiratory Rate 14 08/23/22 04:38 Blood Pressure 122/74 08/23/22 04:38 Pulse Oximetry 98 08/23/22 04:38 Oxygen Delivery Nd thod 08/23/22 04:38 Oxygen Flow Rate 2 08/23/22 03:55 MDM - Nausea/Vomiting/Diarrhea Medical Decision Making 51-year-old gentleman presenting with abdominal concerns. No finding on ED evaluation requiring inpatient management. Satisfactory for outpatient management with improved symptoms with ER treatment. Medical Records I reviewed the patient's medical records. Lab Data I reviewed the patient's lab results. : 08/23/22 02:03 08/23/22 02:03 Radiology Impressions Chest X-Ray 08/23/22 02:19 IMPRESSION: No acute findings. Abdomen/Pelvis CT 08/23/22 02:41 IMPRESSION: No acute findings. Laboratory Results WBC 8.1 10^3/uL (4.0-10.0) 08/23/22 02:03 RBC 3.96 10^6/uL (4.1-5.3) L 08/23/22 02:03 Hgb 13.3 g/dL (11.7-16.6) 08/23/22 02:03 Hct 40.6 % (42.0-52.0) L 08/23/22 02:03 MCV 102.5 fl (80-94) H 08/23/22 02:03 MCH 33.6 pg (28.0-34.0) 08/23/22 02:03 MCHC 32.8 g/dL (30.0-36.0) 08/23/22 02:03 RDW 14.2 % (12.1-15.1) 08/23/22 02:03 Plt Count 208 10^3/cmm (130-400) 08/23/22 02:03 MPV 9.4 fL (7.4-10.4) 08/23/22 02:03 Neut % (Auto) 63.5 % 08/23/22 02:03 Lymph % (Auto) 26.8 % 08/23/22 02:03 [place] % (Auto) 7.1 % 08/23/22 02:03 Eos % (Auto) 2.0 % 08/23/22 02:03 Baso % (Auto) 0.2 % 08/23/22 02:03 Neut # (Auto) 5.15 10^3/uL (1.8-7.7) 08/23/22 02:03 Lymph # (Auto) 2.2 10^3/uL (0.8-4.8) 08/23/22 02:03 [place] # (Auto) 0.6 10^3/uL (0.2-0.9) 08/23/22 02:03 Eos # (Auto) 0.2 10^3/uL (0.0-0.8) 08/23/22 02:03 Baso # (Auto) 0.0 10^3/uL (0.0-0.1) 08/23/22 02:03 Nucleated RBC % (auto) 0 % 08/23/22 02:03 Nucleated RBCs # 0.0 /100WBC 08/23/22 02:03 Sodium 138 mmol/L (136-145) 08/23/22 02:03 Potassium 4.5 mmol/L (3.5-5.1) 08/23/22 02:03 Chloride 102 mmol/L (98-107) 08/23/22 02:03 Carbon Dioxide 23 mmol/L (22-29) 08/23/22 02:03 Anion Gap 17.5 (5-19) 08/23/22 02:03 BUN 15 mg/dL (6-20) 08/23/22 02:03 Creatinine 0.8 mg/dL (0.7-1.2) 08/23/22 02:03 GFR Calculation 101.9 mL/min (90-130) 08/23/22 02:03 Glucose 107 mg/dL (65-115) 08/23/22 02:03 Calculated Osmolality 287 mOsm/kg (285-295) 08/23/22 02:03 Lactate 1.5 mmol/L (0.5-2.2) 08/23/22 02:03 Calcium 9.0 mg/dL (8.5-10.5) 08/23/22 02:03 Total Bilirubin 0.2 mg/dL (0.15-1.2) 08/23/22 02:03 AST 16 U/L (0-40) 08/23/22 02:03 ALT 19 U/L (0-41) 08/23/22 02:03 Alkaline Phosphatase 93 U/L (40-130) 08/23/22 02:03 Troponin T Baseline 22 ng/L (0-15) H 08/23/22 02:03 Troponin T 120 Minute 22.83 ng/L (0-15) H 08/23/22 04:25 Delta Troponin T 0.83 ABS# (0-10) 08/23/22 04:25 NT-Pro-B Natriuret Pep 189 pg/mL (0-125) H 08/23/22 02:03 Total Protein 7.0 g/dL (6.6-8.7) 08/23/22 02:03 Albumin 3.7 g/dL (3.5-5.2) 08/23/22 02:03 Globulin 3.3 g/dL (1.3-4.6) 08/23/22 02:03 Lipase 49 U/L (13-60) 08/23/22 02:03 Urine Color Yellow (Yellow) 08/23/22 02:30 Urine Appearance Clear (CLEAR) 08/23/22 02:30 Urine pH 6 (5-7) 08/23/22 02:30 Ur Specific [place] 1.015 (1.005-1.030) 08/23/22 02:30 Urine Protein Neg (Negative) 08/23/22 02:30 Urine Glucose (UA) Norm (Normal) 08/23/22 02:30 Urine Ketones Negative (Negative) 08/23/22 02:30 Urine Blood Neg (Negative) 08/23/22 02:30 Urine Nitrate Negative (Negative) 08/23/22 02:30 Urine Bilirubin Neg (Negative) 08/23/22 02:30 Urine Urobilinogen Norm mg/dL (Negative) 08/23/22 02:30 Ur Leukocyte Esterase Negative (Negative) 08/23/22 02:30 SARS-CoV-2 Ag (Rapid) negative (Negative) 08/23/22 03:28 Discharge Plan Discharge Patient Disposition: Home Clinical Impression: Abdominal pain, Acute exacerbation of chronic obstructive pulmonary disease, Nausea, vomiting, and diarrhea Condition: Stable Prescriptions: New ondansetron 4 mg tablet,disintegrating 4 mg PO Q8H PRN (Reason: nausea and vomiting) Qty: 15 0RF oxycodone 5 mg tablet 5 mg PO Q4H PRN (Reason: pain) Qty: 10 0RF Protonix 40 mg tablet,delayed release (DR/EC) 40 mg PO BID 14 Days Qty: 28 0RF amoxicillin-pot clavulanate 875-125 mg tablet 1 tab PO BID Qty: 20 0RF No Action prednisone 50 mg tablet 50 mg PO DAILY Qty: 5 0RF albuterol sulfate 90 mcg/actuation HFA aerosol inhaler 2 inh INHALATION Q6H PRN (Reason: shortness of breath or wheezing) Qty: 8 0RF amiodarone 200 mg tablet 200 mg PO BID Qty: 60 0RF Eliquis 5 mg tablet 5 mg PO BID Qty: 60 0RF diltiazem HCl [Cardizem CD] 120 mg capsule,extended release 24hr 120 mg PO DAILY Qty: 30 0RF furosemide [Lasix] 40 mg Tablet 40 mg PO BID Tylenol 325 mg Tablet 650 mg PO Q4H PRN (Reason: Pain) levothyroxine 75 mcg Tablet 75 mcg PO DAILY ibuprofen 200 mg Tablet 800 mg PO Q6H PRN (Reason: Pain) fluticasone propion-salmeterol 100-50 mcg/dose Blister With Device 1 inh INHALATION BID Ventolin HFA 90 mcg/actuation Hfa Aerosol Inhaler 2 puff INHALATION QID PRN (Reason: Shortness Of Breath) melatonin 3 mg Capsule 6 mg PO BEDTIME PRN (Reason: Sleep) Synthroid 75 mcg tablet 75 mcg PO DAILY Qty: 30 0RF pantoprazole 40 mg tablet,delayed release (DR/EC) 40 mg PO DAILY Qty: 30 0RF clonidine HCl 0.2 mg tablet 0.2 mg PO TID PRN (Reason: hypertensive emergency) Qty: 90 0RF Lipitor 40 mg tablet 40 mg PO DAILY Qty: 30 0RF Effexor XR 150 mg capsule,extended release 24hr 150 mg PO DAILY Qty: 30 0RF isosorbide mononitrate 30 mg tablet extended release 24 hr 30 mg PO DAILY Qty: 30 0RF Discharge Orders: Discharge ED (Routine); Ordered 08/23/22 Ordered By: Haris Waters Discharge Diet: Advance as tolerated and Clear Liquid Discharge Activity: Increase activity as tolerated Patient Instructions: COPD (Chronic Obstructive Pulmonary Disease) (ED), Abdominal Pain (ED), Opioid Safety, Pain Management Activity Restrictions/Additional Instructions: Thank you for visiting the emergency department. You were seen and evaluated for abdominal pain with nausea, vomiting, and diarrhea as well as respiratory symptoms. The exact cause of your symptoms is unclear but likely viral in nature with exacerbation of underlying COPD. I will write you prescription for antibiotics, steroids, and also treatment for your abdominal pain. Additionally, as discussed, I recommend use of your albuterol inhaler 2 puffs every 4 hours for 24 hours followed by 2 puffs every 6 hours for 24 hours followed by 2 puffs every 8 hours for 24 hours and then resume normal schedule. Please follow-up with your primary care provider. Return to the emergency department for worsening symptoms or anything else that you are concerned about a feel needs emergency department evaluation. Coding Level of Care Code ED Optician Apprentice Dispensing for Rigo Conway
--- NOTE | 2022-08-23 02:19 | XRR_ITS ---
PROCEDURE INFORMATION: Exam: XR Chest Exam date and time: 08/23/2022 2:23 AM Age: 51 years old Clinical indication: Cough and wheezing; Prior surgery; Surgery type: Heart radiofrequency ablation. Patient HX: Cough with wheezing. History of afib and esophageal cancer. TECHNIQUE: Imaging protocol: Radiologic exam of the chest. Views: 1 view. COMPARISON: CR XR chest 1V portable [id number] 08/17/2022 1:13 PM FINDINGS: Lungs: No consolidation. Pleural spaces: Unremarkable. No pleural effusion. No pneumothorax. Heart/Mediastinum: Cardiomegaly. Bones/joints: No acute fracture. XR/XR chest 1V portable [id number] IMPRESSION: No acute findings.
--- NOTE | 2022-08-23 02:20 | ECG_ITS ---
[facility] Test Date: 2022-08-23 Pat Name: Lorne Doty Department: Room: Gender: Male Quality Control Assistant: : 1970 Requested By: Haris Waters Order Number: [id number] Bright MD: Juno Guzman M.D. Measurements Intervals [place] Rate: 59 P: 22 ND: 170 QRS: -15 QRSD: 95 T: 62 QT: 406 QTc: 403 Interpretive Statements SINUS BRADYCARDIA POSSIBLE RIGHT VENTRICULAR CONDUCTION DELAY [RSR (QR) IN V1/V2] NONSPECIFIC T-WAVE ABNORMALITY Compared to ECG 08/17/2022 13:26:54 Sinus rhythm no longer present T-wave abnormality still present Electronically Signed On 08-23-2022 8:18:48 CDT by Juno Guzman M.D. [email or web address]/store/NU/[id number] f
[2022-08-23] MEDS: ondansetron 2 mg/ML SDV 2 mL 4 MG IVP (02:31)
[2022-08-23 02:33] LABS: Basophils % 0.2 %; Eosinophils # 0.2 10^3/uL (0.0-0.8); Hematocrit 40.6 % (42.0-52.0); Hemoglobin 13.3 g/dL (11.7-16.6); Lymphocytes # 2.2 10^3/uL (0.8-4.8); Lymphocytes % 26.8 %; Mean Corpuscular HGB Conc 32.8 g/dL (30.0-36.0); Mean Corpuscular Hemoglobin 33.6 pg (28.0-34.0); Mean Corpuscular Volume 102.5 fl (80-94); Mean Platelet Volume 9.4 fL (7.4-10.4); Monocytes # 0.6 10^3/uL (0.2-0.9); Monocytes % 7.1 %; Neutrophils # 5.15 10^3/uL (1.8-7.7); Neutrophils % 63.5 %; Nucleated Red Blood Cells % 0 %; Platelet Count 208 10^3/cmm (130-400); Red Blood Count 3.96 10^6/uL (4.1-5.3); Red Cell Distribution Width 14.2 % (12.1-15.1); White Blood Count 8.1 10^3/uL (4.0-10.0)
[2022-08-23 02:38] LABS: Add Urine Microscopic? NO; Charge for UA Resulting for Rev
--- NOTE | 2022-08-23 02:41 | CTR_ITS ---
PROCEDURE INFORMATION: Exam: CT Abdomen And Pelvis With Contrast Exam date and time: 08/23/2022 3:00 AM Age: 51 years old Clinical indication: Nausea and vomiting; Abdominal pain; Prior surgery; Surgery type: Heart ablation. Hernia repair. Patient HX: C/O epigastric and lower abd pain with n/v. History of esophageal cancer. ; Additional info: Epigastric pain, suprapubic pain, n/v/d TECHNIQUE: Imaging protocol: Computed tomography of the abdomen and pelvis with contrast. Radiation optimization: All CT scans at this facility use at least one of these dose optimization techniques: automated exposure control; mA and/or kV adjustment per patient size (includes targeted exams where dose is matched to clinical indication); or iterative reconstruction. Contrast material: OMNI 350; Contrast volume: 100 ml; Contrast route: INTRAVENOUS (IV); COMPARISON: CT angio chest PE protcl [id number] 08/04/2022 10:18 PM RADIATION DOSE METRICS: Total DLP (mGy-cm): 1167.82 FINDINGS: Liver: Mild fatty liver. Gallbladder and bile ducts: Contracted gallbladder. Pancreas: No ductal dilation. Spleen: No splenomegaly. Adrenal glands: Normal. No mass. Kidneys and ureters: No hydronephrosis. Stomach and bowel: No obstruction. No mucosal thickening. Appendix: No evidence of appendicitis. Intraperitoneal space: No free air. No significant fluid collection. Vasculature: Atherosclerotic changes of the aorta. Lymph nodes: No enlarged lymph nodes. Urinary bladder: Unremarkable as visualized. Reproductive: Unremarkable as visualized. Bones/joints: Nonspecific sclerotic density in the right iliac bone measuring 10mm. Degenerative changes of lower lumbar spine. No acute fracture. Soft tissues: Fat containing inguinal hernias. CT/CT abdomen pelvis w con* [id number] IMPRESSION: No acute findings.
[2022-08-23 02:42] LABS: Bilirubin Urine Neg (Negative); Blood Urine Neg (Negative); Glucose Urine UA Norm (Normal); Ketones Urine Negative (Negative); Leukocyte Esterase Urine Negative (Negative); Nitrate Urine Negative (Negative); Protein Urine Neg (Negative); Specific Gravity, Urine 1.015 (1.005-1.030); Urine Appearance Clear (CLEAR); Urine Color Yellow (Yellow); Urobilinogen Urine Norm (Negative); pH Urine 6 (5-7)
[2022-08-23 02:57] LABS: Troponin(5th) Baseline 22 ng/L (0-15)
[2022-08-23 02:58] LABS: Lactate (Lactic Acid level) 1.5 mmol/L (0.5-2.2)
[2022-08-23] MEDS: iohexol 350 mg/mL 100 mL Btl IV (03:02)
[2022-08-23 03:04] LABS: Alanine Aminotransferase 19 U/L (0-41); Albumin Level 3.7 g/dL (3.5-5.2); Alkaline Phosphatase 93 U/L (40-130); Anion Gap 17.5 (5-19); Aspartate Amino Transferase 16 U/L (0-40); Blood Urea Nitrogen 15 mg/dL (6-20); Carbon Dioxide 23 mmol/L (22-29); Chloride 102 mmol/L (98-107); Creatinine Clr Calc Pharmacy 149.5892; Globulin 3.3 g/dL (1.3-4.6); Glomerular Filtration Rate 101.9 mL/min (90-130); Glucose 107 mg/dL (65-115); Lipase 49 U/L (13-60); NT Pro B Type Natriuretic Pept 189 pg/mL (0-125); Osmolality Calculated 287 mOsm/kg (285-295); Potassium 4.5 mmol/L (3.5-5.1); Sodium 138 mmol/L (136-145); Total Bilirubin 0.2 mg/dL (0.15-1.2)
[2022-08-23 03:26] VITALS: BP 132/55; PULSE 52; RESP 14; O2SAT 96
[2022-08-23 03:53] LABS: SARS Covid-2 Antigen negative (Negative)
[2022-08-23 03:55] VITALS: PULSE 50; RESP 20; O2SAT 98
[2022-08-23] MEDS: ipratropium-albuterol 3 mL Neb INHALATION (03:55)
[2022-08-23] MEDS: amoxicillin-clav 875-125 mg Tablet 1 TAB PO (04:23)
--- NOTE | 2022-08-23 04:34 | ECG_ITS ---
[facility] Test Date: 2022-08-23 Pat Name: Lorne Doty Department: Room: Gender: Male Rn Clinical Review: : 1970 Requested By: Haris Waters Order Number: [id number] Bright MD: Ann-Marie Arroyo M.D. Measurements Intervals [place] Rate: 51 P: 42 IN: 178 QRS: -6 QRSD: 102 T: 64 QT: 459 QTc: 424 Interpretive Statements SINUS BRADYCARDIA Compared to ECG 08/23/2022 01:48:10 T-wave abnormality no longer present Electronically Signed On 08-24-2022 13:04:33 CDT by Ann-Marie Arroyo M.D. [id number]
[2022-08-23 04:38] VITALS: BP 122/74; PULSE 52; RESP 14; O2SAT 98
[2022-08-23 05:00] LABS: Troponin 5 2HR 22.83 ng/L (0-15)
[2022-08-23 05:07] LABS: Troponin 5 2HR Delta 0.83 ABS# (0-10)
== END 2022-08-23 05:40 | disposition home or self-care (01) ==
PROVIDERS: Emergency Provider Emergency Medicine
DX: R10.9 Unspecified abdominal pain (principal); J44.1 Chronic obstructive pulmonary disease with (acute) exacerbation; R11.2 Nausea with vomiting, unspecified; R19.7 Diarrhea, unspecified; Z79.01 Long term (current) use of anticoagulants; F17.210 Nicotine dependence, cigarettes, uncomplicated; Z20.822 Contact with and (suspected) exposure to COVID-19
CPT/HCPCS: 71045; 74177; 80053; 81003; 83605; 83690; 83880; 84484; 85025; 87040; 87426; 93005; 94640; 96374; 96375; 99285; J2405; J2930; Q9967

== ENCOUNTER 2022-08-29 01:48 | Emergency (ER) | payer MEDICARE, SELFPAY ==
[2022-08-29 01:49] VITALS: BP 137/98; PULSE 65; RESP 32; TEMP 36.6; O2SAT 97; BMI 53.2
--- NOTE | 2022-08-29 01:52 | XRR_ITS ---
PROCEDURE INFORMATION: Exam: XR Chest Exam date and time: 08/29/2022 2:30 AM Age: 51 years old Clinical indication: Cough and shortness of breath; Prior surgery; Surgery type: Cardiac ablation; Patient HX: C/O cough with SOB. TECHNIQUE: Imaging protocol: Radiologic exam of the chest. Views: 1 view. COMPARISON: CR (CHEST, ) 08/23/2022 2:23 AM FINDINGS: Lungs: No significant or acute findings. No consolidation. Pleural spaces: No significant costophrenic angle blunting. No pneumothorax. Heart/Mediastinum: Heart size is normal. Bones/joints: No acute osseous abnormality. Soft tissues: Large body habitus. XR/XR chest 1V portable [id number] IMPRESSION: No acute abnormality demonstrated.
[2022-08-29 01:56] VITALS: PULSE 66; RESP 27; O2SAT 98
--- NOTE | 2022-08-29 02:09 | ED_ITS ---
HPI - SOB/Dyspnea General: Chief Complaint: Shortness of Breath/Dyspnea Stated Complaint: SOB Time Seen by Provider: 08/29/22 01:50 Source: patient and EMS Mode of arrival: EMS Limitations: no limitations History of Present Illness: HPI Narrative: 51-year-old male has a history of morbid obesity along with COPD that is very well-known to the ER he states that tonight has been having increasing shortness of breath and wheezing he has had some slight pain he denies any cough or fever denies any worsening or improving factors patient received Decadron along with a breathing treatment in route. Associated symptoms: Reports chest pain; Deny abdominal pain, fever(s), nausea or vomiting Review of Systems Const: Denies: fever(s), chills, body aches or change in appetite Eyes: Denies: blurry vision or eye discomfort ENMT: Denies: throat pain or dental pain Card: Reports: chest pain Resp: Reports: dyspnea GI: Denies: abdominal pain, nausea, vomiting or diarrhea : Denies: dysuria Musc: Denies: neck pain or back pain Skin/Breast: Denies: rash Neuro: Denies: headache(s) Psych: Denies: depression Damon/Lymph: Denies: easy bruising All/Imm: Denies: urticaria PFSH ED PFSH: Medical History Morbid obesity Surgical History H/O cardiac radiofrequency ablation Social History Smoking and tobacco status: current every day smoker Physical Exam Const: COMMON NORMALS: patient oriented x3 and healthy appearing NUTRITIONAL APPEARANCE: obese HENMT: COMMON NORMALS: normocephalic and atraumatic HEAD & SCALP: normocephalic and atraumatic Eye: COMMON NORMALS: Equal, round and reactive pupils present and EOMs intact bilaterally PUPIL: Yes Equal, round and reactive pupils present Neck/C-Spine: COMMON NORMALS: full ROM and supple Chest: COMMONS NORMALS: normal inspection of the chest and normal palpation of entire chest wall Resp: COMMON NORMALS: No retractions and No use of accessory muscles AUSCULTATION: wheezes Cardio: COMMON NORMALS: regular rate, regular rhythm and No murmurs present (Cardio) RATE: regular rate RHYTHM: regular rhythm GI: COMMON NORMALS: Normal to inspection, nondistended, normoactive bowel sounds present, Soft to palpation, non-tender and no masses PALPATION: Yes Soft to palpation Extremity: COMMON NORMALS: normal to inspection and full ROM Neuro: COMMON NORMALS: patient oriented x3, moves all extremities and no focal motor deficits Psych: COMMON NORMALS: mental status grossly normal, Normal thought process present and cooperative THOUGHT PROCESS: Normal thought process present Skin: COMMON NORMALS: no rashes or lesions noted and no wounds GENERAL SKIN EXAM: no rashes or lesions noted Course Vital Signs: Vital signs: Vital Signs Temperature 97.9 F 08/29/22 01:49 Pulse Rate 67 08/29/22 02:56 Respiratory Rate 18 08/29/22 02:56 Blood Pressure 148/68 08/29/22 02:56 Pulse Oximetry 96 08/29/22 02:56 Oxygen Delivery Me thod 08/29/22 02:56 Oxygen Flow Rate 2 08/29/22 02:19 MDM - SOB/Dyspnea Medical Decision Making Patient presents here with dyspnea that is chronic in nature COPD exacerbation he is much improved after breathing treatment is not requiring any oxygen we will prescribe him prednisone and albuterol he is to follow-up with PCP and return if worsening he understands agrees to plan. Lab Data : 08/29/22 02:03 Labs/Radiology: Laboratory Results WBC 13.0 10^3/uL (4.0-10.0) H 08/29/22 02:03 RBC 3.68 10^6/uL (4.1-5.3) L 08/29/22 02:03 Hgb 12.4 g/dL (11.7-16.6) 08/29/22 02:03 Hct 38.3 % (42.0-52.0) L 08/29/22 02:03 MCV 104.1 fl (80-94) H 08/29/22 02:03 MCH 33.7 pg (28.0-34.0) 08/29/22 02:03 MCHC 32.4 g/dL (30.0-36.0) 08/29/22 02:03 RDW 14.2 % (12.1-15.1) 08/29/22 02:03 Plt Count 229 10^3/cmm (130-400) 08/29/22 02:03 MPV 8.9 fL (7.4-10.4) 08/29/22 02:03 Neut % (Auto) 74.6 % 08/29/22 02:03 Lymph % (Auto) 17.8 % 08/29/22 02:03 [place] % (Auto) 5.6 % 08/29/22 02:03 Eos % (Auto) 1.3 % 08/29/22 02:03 Baso % (Auto) 0.2 % 08/29/22 02:03 Neut # (Auto) 9.71 10^3/uL (1.8-7.7) H 08/29/22 02:03 Lymph # (Auto) 2.3 10^3/uL (0.8-4.8) 08/29/22 02:03 [place] # (Auto) 0.7 10^3/uL (0.2-0.9) 08/29/22 02:03 Eos # (Auto) 0.2 10^3/uL (0.0-0.8) 08/29/22 02:03 Baso # (Auto) 0.0 10^3/uL (0.0-0.1) 08/29/22 02:03 Nucleated RBC % (auto) 0 % 08/29/22 02:03 Nucleated RBCs # 0.0 /100WBC 08/29/22 02:03 Specimen Type Arterial 08/29/22 02:15 Sample Site Radial, right 08/29/22 02:15 ABG pH 7.44 (7.35-7.45) 08/29/22 02:15 ABG pCO2 39.9 mmHg (35-45) 08/29/22 02:15 ABG pO2 90.2 mmHg (80.0-100.0) 08/29/22 02:15 ABG HCO3 26.9 mmol/L (22-26) H 08/29/22 02:15 ABG Base Excess 2.5 mmol/L (-2.0-2.0) H 08/29/22 02:15 Richard Test Pos 08/29/22 02:15 Hematocrit 39.4 % (42-52) L 08/29/22 02:15 O2 Delivery Device Nc 08/29/22 02:15 O2 Liters/Min 3.0 % 08/29/22 02:15 Tarring Machine Operator ID Hinja 08/29/22 02:15 Troponin T Baseline 23 ng/L (0-15) H 08/29/22 02:03 NT-Pro-B Natriuret Pep 303 pg/mL (0-125) H 08/29/22 02:03 EKG Data EKG 1: I personally reviewed and interpreted this EKG as follows: EKG Interpretation Date: 08/29/22 EKG interpretation time: 02:14 Interpretation: nsr hr [address] or t wave abnormalities qrs 93 qtc 436 Discharge Plan Discharge Patient Disposition: Home Clinical Impression: Acute exacerbation of chronic obstructive airways disease Condition: Stable Prescriptions: New prednisone 50 mg tablet 50 mg PO DAILY Qty: 5 0RF albuterol sulfate 90 mcg/actuation HFA aerosol inhaler 2 inh INHALATION Q6H PRN (Reason: shortness of breath or wheezing) Qty: 8 0RF No Action ondansetron 4 mg tablet,disintegrating 4 mg PO Q8H PRN (Reason: nausea and vomiting) Qty: 15 0RF oxycodone 5 mg tablet 5 mg PO Q4H PRN (Reason: pain) Qty: 10 0RF Protonix 40 mg tablet,delayed release (DR/EC) 40 mg PO BID 14 Days Qty: 28 0RF amoxicillin-pot clavulanate 875-125 mg tablet 1 tab PO BID Qty: 20 0RF amiodarone 200 mg tablet 200 mg PO BID Qty: 60 0RF Eliquis 5 mg tablet 5 mg PO BID Qty: 60 0RF diltiazem HCl [Cardizem CD] 120 mg capsule,extended release 24hr 120 mg PO DAILY Qty: 30 0RF furosemide [Lasix] 40 mg Tablet 40 mg PO BID Tylenol 325 mg Tablet 650 mg PO Q4H PRN (Reason: Pain) levothyroxine 75 mcg Tablet 75 mcg PO DAILY ibuprofen 200 mg Tablet 800 mg PO Q6H PRN (Reason: Pain) fluticasone propion-salmeterol 100-50 mcg/dose Blister With Device 1 inh INHALATION BID Ventolin HFA 90 mcg/actuation Hfa Aerosol Inhaler 2 puff INHALATION QID PRN (Reason: Shortness Of Breath) melatonin 3 mg Capsule 6 mg PO BEDTIME PRN (Reason: Sleep) Synthroid 75 mcg tablet 75 mcg PO DAILY Qty: 30 0RF pantoprazole 40 mg tablet,delayed release (DR/EC) 40 mg PO DAILY Qty: 30 0RF clonidine HCl 0.2 mg tablet 0.2 mg PO TID PRN (Reason: hypertensive emergency) Qty: 90 0RF Lipitor 40 mg tablet 40 mg PO DAILY Qty: 30 0RF Effexor XR 150 mg capsule,extended release 24hr 150 mg PO DAILY Qty: 30 0RF isosorbide mononitrate 30 mg tablet extended release 24 hr 30 mg PO DAILY Qty: 30 0RF Discharge Orders: Discharge ED (Routine); Ordered 08/29/22 Ordered By: Abdiel Johnson Discharge Diet: Advance as tolerated Discharge Activity: Resume usual activity Patient Instructions: COPD (Chronic Obstructive Pulmonary Disease) (ED) Coding Level of Care Code ED Charter Bus Driver for Rigo Fwd Exam Comprehensive
[2022-08-29 02:11] LABS: Basophils % 0.2 %; Eosinophils # 0.2 10^3/uL (0.0-0.8); Eosinophils % 1.3 %; Hematocrit 38.3 % (42.0-52.0); Hemoglobin 12.4 g/dL (11.7-16.6); Lymphocytes # 2.3 10^3/uL (0.8-4.8); Lymphocytes % 17.8 %; Mean Corpuscular HGB Conc 32.4 g/dL (30.0-36.0); Mean Corpuscular Hemoglobin 33.7 pg (28.0-34.0); Mean Corpuscular Volume 104.1 fl (80-94); Mean Platelet Volume 8.9 fL (7.4-10.4); Monocytes # 0.7 10^3/uL (0.2-0.9); Monocytes % 5.6 %; Neutrophils # 9.71 10^3/uL (1.8-7.7); Neutrophils % 74.6 %; Nucleated Red Blood Cells % 0 %; Platelet Count 229 10^3/cmm (130-400); Red Blood Count 3.68 10^6/uL (4.1-5.3); Red Cell Distribution Width 14.2 % (12.1-15.1)
--- NOTE | 2022-08-29 02:14 | ECG_ITS ---
[facility] Test Date: 2022-08-29 Pat Name: Lorne Doty Department: Room: Gender: Male Business Practices Officer: : 1970 Requested By: Abdiel Johnson Order Number: [id number] Deangelo MD: Juno Guzman M.D. Measurements Intervals [place] Rate: 68 P: 70 HI: 160 QRS: -16 QRSD: 93 T: 64 QT: 419 QTc: 446 Interpretive Statements SINUS RHYTHM NONSPECIFIC T-WAVE ABNORMALITY Compared to ECG 08/23/2022 04:34:09 T-wave abnormality now present Sinus bradycardia no longer present Electronically Signed On 08-29-2022 3:45:43 CDT by Juno Guzman M.D. [id number]
[2022-08-29] MEDS: ipratropium-albuterol 3 mL Neb INHALATION (02:18)
[2022-08-29 02:19] VITALS: PULSE 68; RESP 22; O2SAT 97
[2022-08-29 02:21] LABS: ABG PCO2 39.9 mmHg (35-45); ABG PH Result 7.44 (7.35-7.45); Arterial Blood Gas Hematocrit 39.4 % (42-52); Base Excess ABG 2.5 mmol/L (-2.0-2.0); Blood Gas Allen Test Pos; Blood Gas Sample Site Radial, right; Blood Gas Sample Type Arterial; HCO3 ABG 26.9 mmol/L (22-26); Oxygen Device NC; PO2 ABG 90.2 mmHg (80.0-100.0)
[2022-08-29 02:24] VITALS: PULSE 71
[2022-08-29] MEDS: LORazepam 1 mg Tablet PO (02:25)
[2022-08-29 02:31] LABS: Troponin(5th) Baseline 23 ng/L (0-15)
[2022-08-29 02:42] LABS: NT Pro B Type Natriuretic Pept 303 pg/mL (0-125)
[2022-08-29 02:56] VITALS: BP 148/68; PULSE 67; RESP 18; O2SAT 96
[2022-08-29] MEDS: ondansetron 4 MG Tablet PO (03:18)
[2022-08-29] MEDS: HYDROcodone-acetaminophen 5-325 mg Tablet 1 TAB PO (03:18)
== END 2022-08-29 03:33 | disposition home or self-care (01) ==
PROVIDERS: Emergency Provider Emergency Medicine
DX: J44.1 Chronic obstructive pulmonary disease with (acute) exacerbation (principal); Z79.01 Long term (current) use of anticoagulants; F17.210 Nicotine dependence, cigarettes, uncomplicated
CPT/HCPCS: 36600; 71045; 82803; 83880; 84484; 85025; 93005; 94640; 99285; Q0162

== ENCOUNTER 2022-08-29 10:20 | Emergency (ER) | payer MEDICARE, SELFPAY ==
[2022-08-29 10:28] VITALS: BP 170/75; PULSE 66; RESP 18; TEMP 36.6; O2SAT 97; BMI 52.4
--- NOTE | 2022-08-29 11:00 | DCPLANNER ---
Addendum entered by Ivy Canada 08/29/22 13:20: Phone number to [facility] is [phone] and the address is [address] [place] [address], this information was given to Itz with Nilesh. Addendum entered by Ivy Canada 08/29/22 13:11: telecom network manager called [facility], spoke with Zachary, was told that they did have a bed available and that they would hold the bed until 6:00. telecom network manager informed ER physician, patients nurse, charge nurse and patient that patient had a bed at [facility]. telecom network manager called Nilesh, spoke with Itz made arrangements for transportation to the custodial. The transportation will take patient to the hot to gather his things, and then take him to [place], that charge will be 150.00. This was approved by Katy. Original Note: Patient was waiting for medical case worker to arrive this morning to help with transportation. telecom network manager spoke with patient, he stated that he was waiting for a Uber ride to be arranged for him, he does not have money to pay for the ride. Patient stated that he was going to go back to [facility], where he had been staying. telecom network manager called Britton, at [facility] and asked if patient still had a bed. telecom network manager was told that patient had left the custodial 3 days ago, did not tell anyone where he was going and took all of his stuff with him. telecom network manager was told that the custodial gave patients bed to another person that needed a place to stay. telecom network manager informed patient that he no longer had a bed at [facility]. telecom network manager offered to provide transportation for patient to [place] to [facility] or [facility], patient does not want to go to [place]. Patient wants to go to [facility], [place] and wants his brother to take him. telecom network manager called Pankaj, patients brother, he informed medical case worker that he will not take patient to [facility] nor will he come to the ER to get him, patient can not stay with him. telecom network manager informed patient of this. telecom network manager called [facility] in [facility] a men's homeless custodial that is full and has a waiting list. telecom network manager informed patient of this as well.
[2022-08-29 12:35] VITALS: BP 164/121; PULSE 91; RESP 16; O2SAT 97
--- NOTE | 2022-08-29 12:58 | ED.C_ITS ---
HPI - Psych General: Chief Complaint: Psychiatric Symptoms Stated Complaint: SI Time Seen by Provider: 08/29/22 10:32 Source: patient Mode of arrival: ambulatory History of Present Illness: 51-year-old male reregistered in the emergency room he had been seen last night and stayed in the waiting room and through the night. He is wanting us to find him accommodations. Initially he was demanding that we pay for another night in a hotel. Case management had made arrangements for him to go to a homeless [facility] in [place] and he was initially refusing he wanted to go to [place] but they are unable to secure a place from there. He became frustrated the process and check back into the emergency room as the patient stating that he was now suicidal and anxious and wanted to be admitted to the hospital. When I talked him at length he admits that this is an attempt to secure a place to stay. He does tell me he has a cousin in [place] who he went to a concert with recently and they drove all the way to [place] as have his cousin get help him manager social media is already been related the same story and when she checked into it it was not accurate. Patient is claiming suicidality but is admitting is primarily driven by the fact that he has no place to stay and he views this as a way to get a place to stay. MD complaint: suicidal ideation and feels depressed Onset (ago): minute(s) Duration: intermittent and changing over time History of same: Yes Relieving factors: none Exacerbating factors: other (Homelessness) Associated psychiatric symptoms: depression and suicidal ideation Associated symptoms: Reports suicidal ideation; Deny auditory hallucinations, visual hallucinations, delusions, depression, homicidal ideation or racing thoughts Treatments prior to arrival: none Review of Systems Const: Denies: fever(s), chills, body aches, fatigue, malaise or night sweats Eyes: Denies: change in vision or blurry vision ENMT: Denies: throat pain, oral sores, dental pain, nasal discharge or nasal congestion Card: Denies: chest pain, palpitations, irregular heart rhythm, edema, syncope, dyspnea on exertion, orthopnea or leg pain with exertion Resp: Denies: dyspnea, productive cough, non-productive cough or wheezing GI: Denies: abdominal pain, nausea, vomiting, hematemesis, coffee ground emesis, dysphagia, heartburn, diarrhea, constipation, GI cramping, hematochezia or melena : Denies: flank pain, difficulty urinating, dysuria, urinary frequency, urinary urgency, urinary incontinence or hematuria Musc: Denies: neck pain, back pain, extremity pain, extremity swelling, joint pain or joint swelling Skin/Breast: Denies: rash, pruritus or erythema Psych: Reports: suicidal ideation; Denies: depression, visual hallucinations, auditory hallucinations or homicidal ideation Endo: Denies: polyuria, polydipsia, tired all the time or cold intolerance Damon/Lymph: Denies: easy bruising, easy bleeding, petechiae, enlarged lymph nodes or tender lymph nodes PFSH ED PFSH: Medical History Morbid obesity Surgical History H/O cardiac radiofrequency ablation Social History Smoking and tobacco status: current every day smoker Physical Exam Const: COMMON NORMALS: no acute distress GENERAL APPEARANCE: cooperative and comfortable ORIENTATION/CONSCIOUSNESS: Yes awake, Yes oriented to person, Yes oriented to place and Yes oriented to time HENMT: COMMON NORMALS: normocephalic, atraumatic and hearing grossly normal bilaterally HEAD & SCALP: normocephalic and atraumatic Resp: COMMON NORMALS: normal respiratory effort, No retractions, No use of accessory muscles and clear to auscultation bilaterally AUSCULTATION: clear to auscultation bilaterally Cardio: COMMON NORMALS: regular rate, regular rhythm and No murmurs present (Cardio) RATE: regular rate RHYTHM: regular rhythm GI: COMMON NORMALS: Soft to palpation and No hepatosplenomegaly present AUSCULTATION: Yes normoactive bowel sounds PALPATION: Yes Soft to palpation, No Tenderness to palpation present (GI), No Guarding due to palpation present (GI) and Yes No hepatosplenomegaly present Extremity: COMMON NORMALS: normal to inspection, capillary refill normal, no clubbing, cyanosis or edema, no calf tenderness and no pedal edema Neuro: SENSORIUM/ORIENTATION: Yes oriented to person, Yes oriented to place and Yes oriented to time Psych: THOUGHT CONTENT: No delusions Skin: COMMON NORMALS: no rashes or lesions noted GENERAL SKIN EXAM: no rashes or lesions noted Course Vital Signs: Vital signs: Vital Signs Temperature 97.8 F 08/29/22 10:28 Pulse Rate 91 08/29/22 12:35 Respiratory Rate 16 08/29/22 12:35 Blood Pressure 164/121 08/29/22 12:35 Pulse Oximetry 97 08/29/22 12:35 Oxygen Delivery Me thod 08/29/22 12:35 MDM - Psych Medical Decision Making Earlier this month as an inpatient and we gave him scripts for all of his medications. I talked about the case with Dr. Bose. We had not anticipated admitting him because the patient essentially states he is doing this for secondary gain. By admitting him I do not believe will really improve anything all of the issues present at the time of admission would still be present at the time of discharge. Talked again with case management we were able to secure a bed for him at a [facility] in [place] and make arrangements for transportation we discussed this with the patient he found this acceptable and he states he is no longer suicidal. Conferred a second time with Dr. Bose and he agrees with the plan did not feel that under the circumstances the patient was a good candidate for admissions as there is little to be gained now that he has another option the patient is willing to go and is declining to reiterate his suicidality. Dr. Bose feels this is probably actually a better outcome for the patient he will be able to get more meaningful resources at that facility and would by admission this is more likely to fix his underlying problem. Medical Records I reviewed the patient's medical records. Discharge Plan Discharge Patient Disposition: Home Clinical Impression: Bipolar disorder, Anxiety, Homelessness Condition: Stable Prescriptions: No Action ondansetron 4 mg tablet,disintegrating 4 mg PO Q8H PRN (Reason: nausea and vomiting) Qty: 15 0RF oxycodone 5 mg tablet 5 mg PO Q4H PRN (Reason: pain) Qty: 10 0RF Protonix 40 mg tablet,delayed release (DR/EC) 40 mg PO BID 14 Days Qty: 28 0RF amoxicillin-pot clavulanate 875-125 mg tablet 1 tab PO BID Qty: 20 0RF prednisone 50 mg tablet 50 mg PO DAILY Qty: 5 0RF albuterol sulfate 90 mcg/actuation HFA aerosol inhaler 2 inh INHALATION Q6H PRN (Reason: shortness of breath or wheezing) Qty: 8 0RF amiodarone 200 mg tablet 200 mg PO BID Qty: 60 0RF Eliquis 5 mg tablet 5 mg PO BID Qty: 60 0RF diltiazem HCl [Cardizem CD] 120 mg capsule,extended release 24hr 120 mg PO DAILY Qty: 30 0RF furosemide [Lasix] 40 mg Tablet 40 mg PO BID Tylenol 325 mg Tablet 650 mg PO Q4H PRN (Reason: Pain) levothyroxine 75 mcg Tablet 75 mcg PO DAILY ibuprofen 200 mg Tablet 800 mg PO Q6H PRN (Reason: Pain) fluticasone propion-salmeterol 100-50 mcg/dose Blister With Device 1 inh INHALATION BID Ventolin HFA 90 mcg/actuation Hfa Aerosol Inhaler 2 puff INHALATION QID PRN (Reason: Shortness Of Breath) melatonin 3 mg Capsule 6 mg PO BEDTIME PRN (Reason: Sleep) Synthroid 75 mcg tablet 75 mcg PO DAILY Qty: 30 0RF pantoprazole 40 mg tablet,delayed release (DR/EC) 40 mg PO DAILY Qty: 30 0RF clonidine HCl 0.2 mg tablet 0.2 mg PO TID PRN (Reason: hypertensive emergency) Qty: 90 0RF Lipitor 40 mg tablet 40 mg PO DAILY Qty: 30 0RF Effexor XR 150 mg capsule,extended release 24hr 150 mg PO DAILY Qty: 30 0RF isosorbide mononitrate 30 mg tablet extended release 24 hr 30 mg PO DAILY Qty: 30 0RF Discharge Orders: Discharge ED (Routine); Ordered 08/29/22 Ordered By: Luis E Gunn Discharge Diet: Usual diet Discharge Activity: Resume usual activity Patient Instructions: Opioid Safety, Pain Management Activity Restrictions/Additional Instructions: Continue your current medications. Arrangements have been made for you to go to the [facility] in [place]. Coding Level of Care Code ED Solar Maintenance Technician for Rigo Conway
[2022-08-29 13:23] VITALS: BP 164/121; PULSE 91; RESP 16; O2SAT 97
== END 2022-08-29 13:26 | disposition home or self-care (01) ==
PROVIDERS: Emergency Provider Family Medicine
DX: F41.9 Anxiety disorder, unspecified (principal); Z59.00 Homelessness unspecified; F31.9 Bipolar disorder, unspecified; Z79.01 Long term (current) use of anticoagulants
CPT/HCPCS: 99283